=== PATIENT | female | born 1965 | race Caucasian/White ===

== ENCOUNTER → 2016-08-22 | Outpatient (CLI) | payer OTHER ==
[~2016-08-22] MED LIST: ALBUAER2 INH; ALPH150C PO; AMLO-110 PO; ASPEC81 PO; ASPI1TAB2 PO; CALC1TAB9 PO; CLOP1TAB15 PO; CONJ.6255 PO; CPR500 PO; DILT120C68 PO; ERGO1TAB10 PO; FLUC150T PO; FOLI1POW10; HYDC25 PO; LEVO75TA5 PO; LOSA1TAB38 PO; METR500T PO; MULT-663 PO; MULTCAP94 PO; NUTR750C PO; PRT/20 PO; SNG10 PO; SYN75 PO; VNTHFA/IN INH; VTMD1000 PO; [UNRECOGNIZED DRUG - CODE] PO
--- NOTE | 2016-08-22 14:00 | DIAGNOSTIC IMAGING REPORT ---
NUCLEAR GASTRIC EMPTYING STUDY HISTORY: Nausea. COMPARISON: None. TECHNIQUE: Following the oral administration of 1 mCi of technetium 99m sulfur colloid in egg sandwich and 8 ounces of water, static abdominal images are obtained anteriorly and posteriorly at 0 minutes, 1 hour, 2 hour, and 4 hour time intervals. Gastric emptying was calculated utilizing the geometric mean method. FINDINGS: There is approximately 51% activity remaining at the 1 hour time interval (normal is less than 90%), 2% remaining at the 2 hour time interval (normal is less than 60%), and 0% activity remaining at the 4 hour time interval (normal is less than 10%). IMPRESSION: No evidence for delayed gastric emptying. Electronically signed by: Jan Pulido M.D. 08/22/2016 1:58 PM Dictated Date/Time: 08/22/2016 1:57 PM
== END | disposition home or self-care (01) ==
LOC: C.NUCL 09:03
PROVIDERS: ATTEND Internal Medicine
DX: R11.0 Nausea (principal)

== ENCOUNTER 2016-10-08 23:31 | Inpatient (IN) | payer OTHER ==
[~2016-10-08] VITALS: Ht 160 cm; Wt 45.2 kg
[~2016-10-08 23:31] MED LIST changes: -AMLO-110 PO; -ASPI1TAB2 PO; -CALC1TAB9 PO; -CPR500 PO; -FLUC150T PO; -LEVO75TA5 PO; -METR500T PO; -MULTCAP94 PO; -VNTHFA/IN INH; -VTMD1000 PO
[2016-10-08] MEDS ORDERED: MoRPHine SULFATE 4 MG/ML 1 ML CARP\\VIAL IV STA (23:47)
[2016-10-08] MEDS ORDERED: SODIUM CHLORIDE 0.9% 1000ML 1,000 ML IV STA (23:47)
[2016-10-08] MEDS ORDERED: ONDANSETRON INJ 2 MG/ML 2 ML VIAL IV STA (23:47)
[2016-10-08 23:59] LABS: BASO % 0.2 %; BASO ABS # 0.04 K/uL (0-0.2); COMPLETE YES; EOS % 0.6 %; HEMATOCRIT 44.6 % (37-47); IG% 0.3 %; LYMPH % 14.5 %; LYMPH ABS # 3.38 K/uL (1.2-3.4); MEAN CORPUSCULAR HEMOGLOBIN 30.7 pg (25-34); MEAN CORPUSCULAR HGB CONC 34.5 g/dl (32-36); MEAN PLATELET VOLUME 9.5 fL (7.4-10.4); MONO % 6.6 %; NEUT % 77.8 %; PLATELET COUNT 456 K/uL (130-400); RED BLOOD COUNT 5.01 M/uL (4.2-5.4); WHITE BLOOD COUNT 23.37 K/uL (4.8-10.8)
[2016-10-09] MEDS ORDERED: OPTIRAY 320 IV PRN
[2016-10-09 00:02] LABS: MANUAL MICROSCOPIC REQUIRED? NO; REVIEW REQ? NO; URINE APPEARANCE CLEAR (CLEAR); URINE BILIRUBIN NEG (NEG); URINE COLOR YELLOW; URINE EPITHELIAL CELL AUTO 20-30 /lpf (0-5); URINE NITRITE NEG (NEG); URINE PH 5.5 (4.5-7.5); URINE SPECIFIC GRAVITY 1.017 (1.000-1.030); UROBILINOGEN NEG (NEG)
[2016-10-09 00:22] LABS: ALKALINE PHOSPHATASE 97 U/L (45-117); ALT/SGPT 30 U/L (12-78); BLOOD UREA NITROGEN 20 mg/dl (7-18); BUN/CREATININE RATIO 20.7 (10-20); CALCIUM 10.7 mg/dl (8.5-10.1); CARBON DIOXIDE 24 mmol/L (21-32); CHLORIDE 100 mmol/L (98-107); CREATININE 0.97 mg/dl (0.60-1.20); GLUCOSE 74 mg/dl (70-99); SODIUM 140 mmol/L (136-145)
[2016-10-09 00:54] LABS: POTASSIUM 3.8 mmol/L (3.5-5.1)
[2016-10-09] MEDS ORDERED: ONDANSETRON INJ 2 MG/ML 2 ML VIAL IV STA (01:24)
[2016-10-09] MEDS ORDERED: LEVO75TA5 PO (01:50)
[2016-10-09] MEDS ORDERED: AMLO-110 PO (01:51)
[2016-10-09] MEDS ORDERED: CALC1TAB9 PO (01:53)
[2016-10-09] MEDS ORDERED: ASPI1TAB2 PO (01:53)
[2016-10-09] MEDS ORDERED: VNTHFA/IN INH (01:53)
[2016-10-09] MEDS ORDERED: MULTCAP94 PO (01:54)
[2016-10-09] MEDS ORDERED: CIPROFLOXACIN 400MG / 200ML D5W IV STA (02:10)
[2016-10-09] MEDS ORDERED: METRONIDAZOLE 500MG / 100ML NSS IV STA (02:10)
--- NOTE | 2016-10-09 02:27 | EMERGENCY ROOM VISIT NOTE ---
History Report prepared by Ioana: Elmira Fish Under the Supervision of: Dr. Matty Hernández M.D. First contact with patient: 23:41 Chief Complaint: ABDOMINAL PAIN Stated Complaint: SEVERE LOWER ABD PAIN History of Present Illness The patient is a 51 year old female who presents to the Emergency Room with complaints of persistent lower abdominal pain starting 1800 today. She describes the pain as a pressure which is present on across her lower abdomen. She has a history of kidney stones, but this pain is different. She reports nausea and dry heaving. She also had a small amount of diarrhea. She denies any bloody stools, urinary symptoms or fever. She has a history of hypertension. Source of History: patient Onset: 1800 Position: abdomen (lower) Quality: pressure Timing: other (persistent) Associated Symptoms: + nausea, + diarrhea, No fevers, No hematochezia, No urinary symptoms Note: Pt reports dry heaving. Review of Systems See HPI for pertinent positives & negatives. A total of 10 systems reviewed and were otherwise negative. Past Medical & Surgical Medical Problems: (1) Hypertension Family History No pertinent family history stated. Social History Smoking Status: Never Smoker Marital Status: Occupation Status: employed Current/Historical Medications Scheduled Amlodipine (Norvasc), 5 MG PO DAILY Aspirin (Selina Aspirin Ec Low Dose), 1 TAB PO DAILY Calcium Citrate-Vitamin D (Citracal + D3 Maximum), 1 TAB PO DAILY Levothyroxine Sodium (Levothyroxine Sodium), 1 TAB PO DAILY Losartan Potassium (Cozaar), 100 MG PO DAILY Multiple Vitamins W/ Minerals (Ocuvite Adult 50+), 1 CAP PO DAILY Pantoprazole (Protonix), 20 MG PO DAILY Scheduled PRN Albuterol Hfa (Ventolin Hfa), 2-4 PUFFS INH Q6H PRN for SOB/Wheezing Allergies Coded Allergies: Amoxicillin (Verified Allergy, Mild, GI SYMPTOMS, 10/09/16) Clavulanic Acid (Verified Allergy, Mild, GI SYMPTOMS, 10/09/16) Homatropine (Verified Allergy, Mild, GI SYMPTOMS, 10/09/16) Hydrocodone (Verified Allergy, Mild, GI SYMPTOMS, 10/09/16) Sulfa Drugs (Verified Allergy, Unknown, 10/09/16) Physical Exam Vital Signs Date Time Temp Pulse Resp B/P (MAP) Pulse Ox O2 Delivery O2 Flow Rate FiO2 10/09/16 02:17 72 18 119/63 98 Room Air 10/09/16 00:38 74 18 109/75 98 Room Air 10/08/16 23:34 36.8 71 18 155/79 95 Room Air Physical Exam Constitutional: Vital signs reviewed. Eyes: Pupils are equal round reactive to light. Conjunctiva are noninjected. ENT: Pharynx is clear without erythema or exudate. Mucous membranes are moist. Neck supple without meningeal signs. Respiratory: Clear to auscultation bilaterally. Breath sounds are equal bilaterally. Cardiovascular: Regular rate and rhythm. No rubs or gallops. GI: Soft, nondistended with suprapubic tenderness to palpation. No guarding. Bowel sounds are present. Musculoskeletal: No peripheral edema. No lower extremity tenderness. Integumentary: No cyanosis. Neurological: The patient is awake and alert. No focal deficits. Psychiatric: Normal affect. Medical Decision & Procedures ER Provider Diagnostic Interpretation: Radiology results as stated below per my review and the [facility] radiologist's interpretation: CT abdomen and pelvis: Diverticulosis with mild thickening and adjacent stranding involving the sigmoid colon, suggestive of mild diverticulitis. Small 10 mm low-density focus in the lateral left pelvis, differential considerations include focal free fluid , early abscess, or ovarian cyst. No evidence of free air. Ectopically located and rotated right kidney in the right lateral abdomen. Right renal pelviectasis without evidence of hydroureter or obvious obstructing ureteral stone. Small renal hypodensities, possible cysts. Prominent intrahepatic ducts. Mild basilar atelectatic changes. Laboratory Results 10/08/16 23:45 Red Blood Count 5.01, Mean Corpuscular Volume 89.0, Mean Corpuscular Hemoglobin 30.7, Mean Corpuscular Hemoglobin Concent 34.5, Mean Platelet Volume 9.5, Neutrophils (%) (Auto) 77.8, Lymphocytes (%) (Auto) 14.5, Monocytes (%) (Auto) 6.6, Eosinophils (%) (Auto) 0.6, Basophils (%) (Auto) 0.2, Neutrophils # (Auto) 18.19, Lymphocytes # (Auto) 3.38, Monocytes # (Auto) 1.55, Eosinophils # (Auto) 0.13, Basophils # (Auto) 0.04 10/08/16 23:45 10/09/16 00:26 Test 6/5/17 23:39 10/08/16 23:45 10/09/16 00:26 Urine Color YELLOW Urine Appearance CLEAR (CLEAR) Urine pH 5.5 (4.5-7.5) Urine Specific [place] 1.017 (1.000-1.030) Urine Protein NEG (NEG) Urine Glucose (UA) NEG (NEG) Urine Ketones TRACE (NEG) Urine Occult Blood NEG (NEG) Urine Nitrite NEG (NEG) Urine Bilirubin NEG (NEG) Urine Urobilinogen NEG (NEG) Urine Leukocyte Esterase TRACE (NEG) Urine WBC (Auto) 1-5 /hpf (0-5) Urine RBC (Auto) 0-4 /hpf (0-4) Urine Hyaline Casts (Auto) 1-5 /lpf (0-5) Urine Epithelial Cells (Auto) 20-30 /lpf (0-5) Urine Bacteria (Auto) NEG (NEG) White Blood Count 23.37 K/uL (4.8-10.8) Red Blood Count 5.01 M/uL (4.2-5.4) Hemoglobin 15.4 g/dL (12.0-16.0) Hematocrit 44.6 % (37-47) Mean Corpuscular Volume 89.0 fL (80-100) Mean Corpuscular Hemoglobin 30.7 pg (25-34) Mean Corpuscular Hemoglobin Concent 34.5 g/dl (32-36) Platelet Count 456 K/uL (130-400) Mean Platelet Volume 9.5 fL (7.4-10.4) Neutrophils (%) (Auto) 77.8 % Lymphocytes (%) (Auto) 14.5 % Monocytes (%) (Auto) 6.6 % Eosinophils (%) (Auto) 0.6 % Basophils (%) (Auto) 0.2 % Neutrophils # (Auto) 18.19 K/uL (1.4-6.5) Lymphocytes # (Auto) 3.38 K/uL (1.2-3.4) Monocytes # (Auto) 1.55 K/uL (0.11-0.59) Eosinophils # (Auto) 0.13 K/uL (0-0.5) Basophils # (Auto) 0.04 K/uL (0-0.2) RDW Standard Deviation 40.5 fL (36.4-46.3) RDW Coefficient of Variation 12.5 % (11.5-14.5) Immature Granulocyte % (Auto) 0.3 % Immature Granulocyte # (Auto) 0.08 K/uL (0.00-0.02) Anion Gap 16.0 mmol/L (3-11) Est Creatinine Clear Calc Drug Dose 47.9 ml/min Estimated GFR () 77.3 Estimated GFR (Non- 66.7 BUN/Creatinine Ratio 20.7 (10-20) Calcium Level 10.7 mg/dl (8.5-10.1) Total Bilirubin 0.6 mg/dl (0.2-1) Alanine Aminotransferase (ALT/SGPT) 30 U/L (12-78) Alkaline Phosphatase 97 U/L (45-117) Total Protein 9.3 gm/dl (6.4-8.2) Albumin 4.8 gm/dl (3.4-5.0) Lipase 157 U/L (73-393) Direct Bilirubin 0.1 mg/dl (0-0.2) Aspartate Amino Transf (AST/SGOT) 45 U/L (15-37) Laboratory results as reviewed by me. Medications Administered Medications (Trade) Dose Ordered Sig/Mary Route Start Time Stop Time Status Last Admin Dose Admin Morphine Sulfate (MoRPHine SULFATE INJ) 4 mg ONE STAT IV 10/08/16 23:47 10/08/16 23:48 DC 10/08/16 23:55 4 MG Ondansetron HCl (Zofran Inj) 4 mg NOW STAT IV 10/08/16 23:47 10/08/16 23:48 DC 10/08/16 23:55 4 MG Sodium Chloride 1,000 ml @ 999 mls/hr Q1H1M STAT IV 10/08/16 23:47 10/09/16 00:47 DC 10/08/16 23:54 999 MLS/HR Ondansetron HCl (Zofran Inj) 4 mg NOW STAT IV 10/09/16 01:24 10/09/16 01:25 DC 10/09/16 01:27 4 MG ED Course 2344: The patient was evaluated in room A9. A complete history and physical exam was performed. 2347: NSS 1000 ml @ 999 mls/hr IV, Zofran Inj 4 mg IV, Morphine Sulfate 4 mg IV. 0123: The patient requests more nausea medications. 0124: Zofran Inj 4 mg IV. 0206: I reevaluated the patient. I discussed the results and treatment plan with her. She verbalized understanding and agreement. The patient will be evaluated for further management. 0210: Metronidazole 500 mg IV, Ciprofloxacin/Dextrose 400 mg IV. 0220: I discussed the patient's case with Dr. Ashraf, [facility] [place]. The patient will be evaluated for further management. Medical Decision This is a 51-year-old female who presents with lower abdominal pain. Differential diagnosis includes diverticulitis, perforation, abscess, UTI, mass , kidney stone. I did perform a limited focused review of portions of the patient's old chart on the electronic medical record. The patient had a gastric emptying study on August 22 which showed no evidence of delayed gastric emptying. She had a colonoscopy in 2011 which showed diverticulosis and polyps. Medication Reconciliation: I attest that I have personally reviewed the patient' s current medication list. Blood Pressure Screening: Patient was found to have an elevated blood pressure and was referred to their primary doctor for recheck and further treatment. I did evaluate the patient as noted above. The patient is presenting with lower abdominal pain. She has had some vomiting and diarrhea as well. Prior colonoscopy demonstrated diverticulosis. IV access was established. I did treat the patient with IV morphine and Zofran. She was given normal saline IV. I did order and personally review the patient's urinalysis as described above. I did order and review the patient's blood work as noted in the electronic medical record. Her white blood cell count is significantly elevated. I did order a CT of the abdomen and pelvis. I did review the images myself as well as the radiology report as described above. She does appear to have diverticulitis of the sigmoid colon. There was a 10 mm focus on the left side in the pelvis which could represent a developing abscess which would be consistent with her history of pain and diarrhea. She is monogamous and and is not concerned about STI. Pelvic exam was deferred after discussion with the patient and her . I did treat her with IV Cipro and Flagyl. I did discuss the case with the hospitalist and manager case. Consults Time Called: [phone] Consulting Physician: Dr. Ashraf, [facility] [place] Returned Call: [phone] I discussed the patient's case with him. The patient will be evaluated for further management. Impression Primary Impression: Sigmoid diverticulitis Additional Impression: Intra-abdominal abscess Scribe Attestation The scribe's documentation has been prepared under my direct and personally reviewed by me in its entirety. I confirm that the note above accurately reflects all work, treatment, procedures, and medical decision making performed by me. Departure Information Dispostion Being Evaluated By Hospitalist Referrals Chalino Engle M.D. (PCP) Patient Instructions [facility] Health Problem Qualifiers
[2016-10-09] MEDS ORDERED: ALBUTEROL HFA 8 GM INHALER INH PRN (03:30)
[2016-10-09 04:00] VITALS: BP 132/86; PULSE 102; TEMP 37.2; O2SAT 93
[2016-10-09 04:10] VITALS: Ht 160 cm; Wt 45.2 kg
--- NOTE | 2016-10-09 04:23 | History and Physical ---
History & Physical Date & Time of Service: Oct 09, 2016 at 04:04 Chief Complaint: Diverticulitis Primary Care Physician: Chalino Engle M.D. History of Present Illness Source: patient 51 y/o F Hx HTN, TIA, Mitochondrial myopathy with chronic lactic acidosis. Pt developed LLQ abdominal pain which became progressively severe. She has not had diarrhea or fevers. She did describe nausea. A CT was obtained in the ER revealing sigmoid diverticulitis with possible small abscess formation. Past Medical/Surgical History 1) Lactic acid mitochondrial myopathy (MELAS) 2) TIA 3) Hypertension 4) Hyperlipidemia 5) Graves' disease 1993 with hypothyroidism 6) Asthma 7) Osteoporosis Past Surgical History: Appendectomy, Colposcopy with loop electrode conization, Sinus surgery, Dental surgery, Tonsillectomy with adenoidectomy Family History Mother had a CVA Social History Smoking Status: Never Smoker Marital Status: Housing status: lives with family Occupational Status: employed Immunizations History of Influenza Vaccine: No History of Tetanus Vaccine?: Yes History of Pneumococcal: No History of Hepatitis B Vaccine: No Multi-Drug Resistant Organisms History of MDRO: No Allergies Coded Allergies: Amoxicillin (Verified Allergy, Mild, GI SYMPTOMS, 10/09/16) Clavulanic Acid (Verified Allergy, Mild, GI SYMPTOMS, 10/09/16) Homatropine (Verified Allergy, Mild, GI SYMPTOMS, 10/09/16) Hydrocodone (Verified Allergy, Mild, GI SYMPTOMS, 10/09/16) Sulfa Drugs (Verified Allergy, Unknown, 10/09/16) Home Medications Scheduled Amlodipine (Norvasc), 5 MG PO DAILY Aspirin (Selina Aspirin Ec Low Dose), 1 TAB PO DAILY Calcium Citrate-Vitamin D (Citracal + D3 Maximum), 1 TAB PO DAILY Levothyroxine Sodium (Levothyroxine Sodium), 1 TAB PO DAILY Losartan Potassium (Cozaar), 100 MG PO DAILY Multiple Vitamins W/ Minerals (Ocuvite Adult 50+), 1 CAP PO DAILY Pantoprazole (Protonix), 20 MG PO DAILY Scheduled PRN Albuterol Hfa (Ventolin Hfa), 2-4 PUFFS INH Q6H PRN for SOB/Wheezing Review of Systems Constitutional: + weakness (chronic), No fever, No chills, No sweats Eyes: No worsening of vision, No eye pain ENT: No hearing loss, No unusual epistaxis, No nasal symptoms Respiratory: No cough, No sputum, No wheezing Cardiovascular: No chest pain, No orthopnea, No PND Abdomen: + pain, + nausea, No vomiting, No diarrhea Musculoskeletal: + muscle pain (chronic), No joint pain Genitourinary - Female: No dysuria, No urinary frequency, No urinary urgency, No urinary incontinence, No urinary retention, No hematuria Neurologic: No memory loss, No paralysis, No weakness Psychiatric: No depression symptoms Endocrine: + fatigue Hematologic / Lymphatic: No abnormal bleeding/bruising Integumentary: No rash Allergic / Immunologic: No environmental allergies Physical Exam Vital Signs Date Time Temp Pulse Resp B/P (MAP) Pulse Ox O2 Delivery O2 Flow Rate FiO2 10/09/16 03:44 36.8 66 18 96/56 96 10/09/16 03:39 66 18 96/56 96 Room Air 10/09/16 02:17 72 18 119/63 98 Room Air 10/09/16 00:38 74 18 109/75 98 Room Air 10/08/16 23:34 36.8 71 18 155/79 95 Room Air General Appearance: WD/WN, no apparent distress Head: normocephalic, atraumatic Eyes: normal inspection, PERRL, EOMI ENT: normal ENT inspection, pharynx normal Neck: supple, no JVD Respiratory/Chest: chest non-tender, lungs clear, normal breath sounds, no respiratory distress, no accessory muscle use Cardiovascular: regular rate, rhythm, no edema, no gallop Abdomen/GI: normal bowel sounds, soft, + tenderness (Lower quadrants without guarding) Back: normal inspection, no CVA tenderness Extremities/Musculoskelatal: normal inspection, no calf tenderness, normal capillary refill, no pedal edema, normal range of motion 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, no motor/sensory deficits, alert, normal mood/affect, normal reflexes, oriented x 3 Skin: normal color, warm/dry, no rash Diagnostics Laboratory Results Results Past 24 Hours Test 10/08/16 23:39 10/08/16 23:45 10/09/16 00:26 Range/Units Urine Color YELLOW Urine Appearance CLEAR CLEAR Urine pH 5.5 4.5-7.5 Urine Specific [place] 1.017 1.000-1.030 Urine Protein NEG NEG Urine Glucose (UA) NEG NEG Urine Ketones TRACE NEG Urine Occult Blood NEG NEG Urine Nitrite NEG NEG Urine Bilirubin NEG NEG Urine Urobilinogen NEG NEG Urine Leukocyte Esterase TRACE NEG Urine WBC (Auto) 1-5 0-5 /hpf Urine RBC (Auto) 0-4 0-4 /hpf Urine Hyaline Casts (Auto) 1-5 0-5 /lpf Urine Epithelial Cells (Auto) 20-30 0-5 /lpf Urine Bacteria (Auto) NEG NEG White Blood Count 23.37 4.8-10.8 K/uL Red Blood Count 5.01 4.2-5.4 M/uL Hemoglobin 15.4 12.0-16.0 g/dL Hematocrit 44.6 37-47 % Mean Corpuscular Volume 89.0 80-100 fL Mean Corpuscular Hemoglobin 30.7 25-34 pg Mean Corpuscular Hemoglobin Concent 34.5 32-36 g/dl Platelet Count 456 130-400 K/uL Mean Platelet Volume 9.5 7.4-10.4 fL Neutrophils (%) (Auto) 77.8 % Lymphocytes (%) (Auto) 14.5 % Monocytes (%) (Auto) 6.6 % Eosinophils (%) (Auto) 0.6 % Basophils (%) (Auto) 0.2 % Neutrophils # (Auto) 18.19 1.4-6.5 K/uL Lymphocytes # (Auto) 3.38 1.2-3.4 K/uL Monocytes # (Auto) 1.55 0.11-0.59 K/uL Eosinophils # (Auto) 0.13 0-0.5 K/uL Basophils # (Auto) 0.04 0-0.2 K/uL RDW Standard Deviation 40.5 36.4-46.3 fL RDW Coefficient of Variation 12.5 11.5-14.5 % Immature Granulocyte % (Auto) 0.3 % Immature Granulocyte # (Auto) 0.08 0.00-0.02 K/uL Sodium Level 140 136-145 mmol/L Potassium Level 3.8 3.5-5.1 mmol/L Chloride Level 100 98-107 mmol/L Carbon Dioxide Level 24 21-32 mmol/L Anion Gap 16.0 3-11 mmol/L Blood Urea Nitrogen 20 7-18 mg/dl Creatinine 0.97 0.60-1.20 mg/dl Est Creatinine Clear Calc Drug Dose 47.9 ml/min Estimated GFR () 77.3 Estimated GFR (Non- 66.7 BUN/Creatinine Ratio 20.7 10-20 Random Glucose 74 70-99 mg/dl Calcium Level 10.7 8.5-10.1 mg/dl Total Bilirubin 0.6 0.2-1 mg/dl Direct Bilirubin 0.1 0-0.2 mg/dl Aspartate Amino Transf (AST/SGOT) 45 15-37 U/L Alanine Aminotransferase (ALT/SGPT) 30 12-78 U/L Alkaline Phosphatase 97 45-117 U/L Total Protein 9.3 6.4-8.2 gm/dl Albumin 4.8 3.4-5.0 gm/dl Lipase 157 73-393 U/L Diagnostic Radiology CT abdomen: Sigmoid diverticulitis - possible formation of small abscess Impression Assessment and Plan 51 y/o F Hx HTN, TIA, Mitochondrial myopathy with chronic lactic acidosis. Pt developed LLQ abdominal pain which became progressively severe. She has not had diarrhea or fevers. She did describe nausea. A CT was obtained in the ER revealing sigmoid diverticulitis with possible small abscess formation. 1) Diverticulitis - pt placed on Cipro/Flagyl. Surgery consulted. Pt will be kept NPO and provided with IVF and adequate analgesia. The pt states that her body temp is normally low as a result of her mitochondrial disease. This combined with a chronically elevated lactic acid may make it difficult to gauge the severity of an infection in this pt. 2) HTN - Cont Norvasc, Losartan 3) Hx TIA - ASA held pending surgery evaluation - should be continued if it is deemed that no intervention will be necessary. 4) Mitochondrial myopathy - no treatment is currently available. 5) Hypothyroidism - cont Synthroid Full code - Heparin prophylaxis Total time for this admit including review of labs, meds, EKG, records - discussion with pt and ER attending - 36 min Level of Care Med/Surg Resuscitation Status FULL RESUSCITATION VTE Prophylaxis VTE Risk Assessment Done? Y/N: Yes Risk Level: Low Given or contraindicated: Unfractionated heparin SQ
[2016-10-09] MEDS ORDERED: PROMETHAZINE HCL INJ 12.5 MG in SODIUM CHLORIDE 0.9% 50ML 50 ML IV ONE ×2 (04:30→16:30)
[2016-10-09] MEDS ORDERED: NURSING VERBAL MED ORDER ONE ×2 (04:30→17:00)
[2016-10-09] MEDS: D5NSS + 20MEQ KCL 1,000 ML IV SCH ×3 (04:52→20:02)
[2016-10-09 05:02] LABS: PROTHROMBIN TIME (PATIENT) 10.5 SECONDS (9.0-12.0)
[2016-10-09] MEDS: LEVOTHYROXINE 75 MCG TAB PO SCH ×2 (06:00→16:56)
[2016-10-09] MEDS: HEPARIN SOD 5000 UNIT/0.5 ML CARP SQ SCH ×3 (06:05→21:49)
--- NOTE | 2016-10-09 06:56 | DIAGNOSTIC IMAGING REPORT ---
CT OF THE ABDOMEN AND PELVIS WITH CONTRAST CLINICAL HISTORY: Suprapubic pain. Evaluate for acute diverticulitis. COMPARISON STUDY: CT of the abdomen and pelvis September 04, 2005 and right upper quadrant ultrasound January 26, 2013. TECHNIQUE: Following IV administration of 92 mL of [id number]-320, axial images of the abdomen and pelvis were obtained from the lung bases to the proximal femurs. Images were reviewed in the axial, sagittal, and coronal planes. IV contrast was administered without complication. CT DOSE: 253.68 mGy.cm FINDINGS: There is a 6 lm right hepatic dome cyst. The spleen, adrenal glands and pancreas are unremarkable. There is mild right pelvicaliectasis without hydronephrosis. There are numerous water attenuation renal lesions which are consistent with cysts. Note is made of a 1.5 cm hyperdense lesion arising from the lower pole of the left kidney. This is indeterminate. There is no evidence for a bowel obstruction. There is sigmoid diverticulosis with mild wall thickening of the sigmoid colon and mild adjacent infiltration and fluid. There is no free air or abscess. Skeletal structures are unremarkable. There is no lymphadenopathy. IMPRESSION: 1. Acute sigmoid diverticulitis. No free air or abscess. 2. Indeterminate 1.5 cm lesion arising from the lower pole of the left kidney which may reflect a hyperdense cyst or solid renal lesion. A follow-up renal protocol CT is recommended. Electronically signed by: Mahesh Bonilla M.D. 10/09/2016 6:55 AM Dictated Date/Time: 10/09/2016 6:46 AM
[2016-10-09 07:42] VITALS: BP 100/62; PULSE 60; TEMP 37.1; O2SAT 94
[2016-10-09] MEDS: LOSARTAN POTASSIUM 50 MG TAB PO SCH (08:13)
[2016-10-09] MEDS: PANTOprazole SOD 40 MG TAB PO SCH ×2 (08:14→16:56)
[2016-10-09 08:33] VITALS: O2SAT 94
[2016-10-09] MEDS ORDERED: AMLODIPINE BESYLATE 5 MG TAB PO SCH (09:00)
[2016-10-09] MEDS: METRONIDAZOLE / NSS 500 MG in PREMIXED NSS 100 ML IV SCH ×2 (09:36→18:09)
[2016-10-09] MEDS: CIPROFLOXACIN / D5W 400 MG in PREMIXED IN D5W 200 ML IV SCH (12:32)
--- NOTE | 2016-10-09 13:42 | Surgery Consultation ---
Consultation Date of Consultation: Oct 09, 2016. Attending Physician: Delia Winkler MD Reason for Consultation: Acute diverticulitis of sigmoid colon History of Present Illness Pauly is a pleasant 51 year-old female who presented to emergency department last evening with complaint of left lower quadrant abdominal pain that began suddenly around 6 pm last evening. Pauly states she was not feeling well the past few days and was not eating much. Tried to eat dinner last night and suddenly developed pain. Had associated fever (low grade) and nausea. No vomiting. Denies of any similar episodes of pain. Has had a colonoscopy in the past and new she had diverticulosis. No previous episodes of diverticulitis. A Ct scan of the abdomen and pelvis showed sigmoid diverticulosis with sigmoid wall thickening and adjacent fluid. No free air or abscess appreciated on imaging. Since admission, Pauly states her pain is much improved and now is just a soreness in the left lower abdomen. Denies of any further chills, fever, nausea , or vomiting. She did have a leukocytosis of 23.37 on admission. Past Medical/Surgical History Medical Problems: (1) Intra-abdominal abscess Status: Acute (2) Sigmoid diverticulitis Status: Acute Social History Smoking Status: Never Smoker Marital Status: Occupation Status: employed Allergies Coded Allergies: Amoxicillin (Verified Allergy, Mild, GI SYMPTOMS, 10/09/16) Clavulanic Acid (Verified Allergy, Mild, GI SYMPTOMS, 10/09/16) Homatropine (Verified Allergy, Mild, GI SYMPTOMS, 10/09/16) Hydrocodone (Verified Allergy, Mild, GI SYMPTOMS, 10/09/16) Sulfa Drugs (Verified Allergy, Unknown, 10/09/16) Home Medications Scheduled Amlodipine (Norvasc), 5 MG PO DAILY Aspirin (Selina Aspirin Ec Low Dose), 1 TAB PO DAILY Calcium Citrate-Vitamin D (Citracal + D3 Maximum), 1 TAB PO DAILY Levothyroxine Sodium (Levothyroxine Sodium), 1 TAB PO DAILY Losartan Potassium (Cozaar), 100 MG PO DAILY Multiple Vitamins W/ Minerals (Ocuvite Adult 50+), 1 CAP PO DAILY Pantoprazole (Protonix), 20 MG PO DAILY Scheduled PRN Albuterol Hfa (Ventolin Hfa), 2-4 PUFFS INH Q6H PRN for SOB/Wheezing Current Inpatient Medications Current Inpatient Medications Medications (Trade) Dose Ordered Sig/Mary Route Start Time Stop Time Status Last Admin Dose Admin Ioversol (Optiray 320) 100 ml UD PRN IV 10/09/16 00:00 10/13/16 00:00 Albuterol (Ventolin Hfa Inhaler) 2 puffs Q6H PRN INH 10/09/16 03:30 11/08/16 03:29 Amlodipine Besylate (Norvasc Tab) 5 mg DAILY PO 10/09/16 09:00 11/08/16 08:59 Levothyroxine Sodium (Synthroid Tab) 75 mcg DAILYBB PO 10/09/16 06:00 11/08/16 06:59 Losartan Potassium (coZAAR TAB) 100 mg DAILY PO 10/09/16 09:00 11/08/16 08:59 Pantoprazole Sodium (Protonix Tab) 40 mg QAM PO 10/09/16 09:00 11/08/16 08:59 Morphine Sulfate (MoRPHine SULFATE INJ) 4 mg Q3H PRN IV 10/09/16 03:30 10/23/16 03:29 Heparin Sodium (Porcine) (Heparin Sq 5000 Unit/0.5ml) 5,000 unit Q8H SQ 10/09/16 06:00 11/08/16 05:59 10/09/16 06:05 5,000 UNIT Acetaminophen (Tylenol Tab) 650 mg Q4H PRN PO 10/09/16 03:30 11/08/16 03:29 Ondansetron HCl (Zofran Inj) 4 mg Q6H PRN IV 10/09/16 03:30 11/08/16 03:29 Ciprofloxacin/ Dextrose 400 mg/ Prmx 200 ml @ 100 mls/hr Q12H IV 10/09/16 14:00 10/19/16 13:59 10/09/16 12:32 100 MLS/HR Metronidazole 500 mg/Prmx 100 ml @ 100 mls/hr Q8H IV 10/09/16 10:00 10/19/16 09:59 10/09/16 09:36 100 MLS/HR Potassium Chloride/Dextrose/ Sod Cl 1,000 ml @ 125 mls/hr Q8H IV 10/09/16 04:30 10/10/16 04:29 10/09/16 12:33 125 MLS/HR Review of Systems Constitutional: + fever, + problem reported (low appetite) Abdomen: + pain (LLQ), + nausea, No vomiting, No diarrhea, No constipation, No GI bleeding Genitourinary - Female: No dysuria Physical Exam Date Time Temp Pulse Resp B/P (MAP) Pulse Ox O2 Delivery O2 Flow Rate FiO2 10/09/16 08:33 94 Room Air 10/09/16 07:46 Room Air 10/09/16 07:42 37.1 60 18 100/62 (75) 94 Room Air 10/09/16 04:10 Room Air 10/09/16 04:10 Room Air 10/09/16 04:00 37.2 102 18 132/86 (101) 93 Room Air 10/09/16 03:44 36.8 66 18 96/56 96 10/09/16 03:39 66 18 96/56 96 Room Air 10/09/16 02:17 72 18 119/63 98 Room Air 10/09/16 00:38 74 18 109/75 98 Room Air 10/08/16 23:34 36.8 71 18 155/79 95 Room Air General Appearance: WD/WN, no apparent distress Head: normocephalic, atraumatic Eyes: sclerae normal Neck: trachea midline Respiratory/Chest: no respiratory distress, no accessory muscle use Abdomen/GI: soft, no organomegaly, no pulsatile mass, + tenderness (LLQ, no distention, guarding, rebound, or peritonitis) Extremities/Musculoskelatal: no pedal edema Neurologic/Psych: alert, oriented x 3 Skin: normal color, warm/dry, no rash Laboratory Results Last 24 Hours Test 10/08/16 23:39 10/08/16 23:45 10/09/16 00:26 10/09/16 04:42 Urine Color YELLOW Urine Appearance CLEAR Urine pH 5.5 Urine Specific [place] 1.017 Urine Protein NEG Urine Glucose (UA) NEG Urine Ketones TRACE Urine Occult Blood NEG Urine Nitrite NEG Urine Bilirubin NEG Urine Urobilinogen NEG Urine Leukocyte Esterase TRACE Urine WBC (Auto) 1-5 /hpf Urine RBC (Auto) 0-4 /hpf Urine Hyaline Casts (Auto) 1-5 /lpf Urine Epithelial Cells (Auto) 20-30 /lpf Urine Bacteria (Auto) NEG White Blood Count 23.37 K/uL Red Blood Count 5.01 M/uL Hemoglobin 15.4 g/dL Hematocrit 44.6 % Mean Corpuscular Volume 89.0 fL Mean Corpuscular Hemoglobin 30.7 pg Mean Corpuscular Hemoglobin Concent 34.5 g/dl Platelet Count 456 K/uL Mean Platelet Volume 9.5 fL Neutrophils (%) (Auto) 77.8 % Lymphocytes (%) (Auto) 14.5 % Monocytes (%) (Auto) 6.6 % Eosinophils (%) (Auto) 0.6 % Basophils (%) (Auto) 0.2 % Neutrophils # (Auto) 18.19 K/uL Lymphocytes # (Auto) 3.38 K/uL Monocytes # (Auto) 1.55 K/uL Eosinophils # (Auto) 0.13 K/uL Basophils # (Auto) 0.04 K/uL RDW Standard Deviation 40.5 fL RDW Coefficient of Variation 12.5 % Immature Granulocyte % (Auto) 0.3 % Immature Granulocyte # (Auto) 0.08 K/uL Sodium Level 140 mmol/L Potassium Level mmol/L 3.8 mmol/L Chloride Level 100 mmol/L Carbon Dioxide Level 24 mmol/L Anion Gap 16.0 mmol/L Blood Urea Nitrogen 20 mg/dl Creatinine 0.97 mg/dl Est Creatinine Clear Calc Drug Dose 47.9 ml/min Estimated GFR () 77.3 Estimated GFR (Non- 66.7 BUN/Creatinine Ratio 20.7 Random Glucose 74 mg/dl Calcium Level 10.7 mg/dl Total Bilirubin 0.6 mg/dl Direct Bilirubin mg/dl 0.1 mg/dl Aspartate Amino Transf (AST/SGOT) U/L 45 U/L Alanine Aminotransferase (ALT/SGPT) 30 U/L Alkaline Phosphatase 97 U/L Total Protein 9.3 gm/dl Albumin 4.8 gm/dl Lipase 157 U/L Prothrombin Time 10.5 SECONDS Prothromb Time International Ratio 1.0 Hepatitis C Antibody Screen NEG CT OF THE ABDOMEN AND PELVIS WITH CONTRAST CLINICAL HISTORY: Suprapubic pain. Evaluate for acute diverticulitis. COMPARISON STUDY: CT of the abdomen and pelvis September 04, 2005 and right upper quadrant ultrasound January 26, 2013. TECHNIQUE: Following IV administration of 92 mL of Optiray-320, axial images of the abdomen and pelvis were obtained from the lung bases to the proximal femurs. Images were reviewed in the axial, sagittal, and coronal planes. IV contrast was administered without complication. CT DOSE: 253.68 mGy.cm FINDINGS: There is a 6 lm right hepatic dome cyst. The spleen, adrenal glands and pancreas are unremarkable. There is mild right pelvicaliectasis without hydronephrosis. There are numerous water attenuation renal lesions which are consistent with cysts. Note is made of a 1.5 cm hyperdense lesion arising from the lower pole of the left kidney. This is indeterminate. There is no evidence for a bowel obstruction. There is sigmoid diverticulosis with mild wall thickening of the sigmoid colon and mild adjacent infiltration and fluid. There is no free air or abscess. Skeletal structures are unremarkable. There is no lymphadenopathy. IMPRESSION: 1. Acute sigmoid diverticulitis. No free air or abscess. 2. Indeterminate 1.5 cm lesion arising from the lower pole of the left kidney which may reflect a hyperdense cyst or solid renal lesion. A follow-up renal protocol CT is recommended. Assessment & Plan Acute Sigmoid Diverticulitis- uncomplicated - leukocytosis of 23.37 - LLQ tenderness on examination, no peritonitis or rigidity - CT scan showing no evidence of free air or abscess Plan: Continue conservative treatment at this time: IV fluids, IV antibiotics, Continue NPO, IV pain management as needed Possible sips of clears tomorrow repeat am labs, trend white count will continue to follow Dr. Stanley has seen and examined patient, agrees with above.
[2016-10-09 15:20] VITALS: BP 103/70; PULSE 60; TEMP 37; O2SAT 97
--- NOTE | 2016-10-09 17:04 | Progress Note ---
Progress Note Date of Service Oct 09, 2016. Progress Note Pt admitted after midnight. Seen and examined, chart reviewed Pt feeling much better, afebrile, pain less. SHe reports she recently had her meds changed around by a Mitochondrial Dz expert in [place] 2 weeks ago--> she reported he stopped her amlodipine as it may have been causing "surges of adrenaline" in her head and started her on Coreg. This she took for 4 days and had significant increase in nausea and some vomiting. She reports almost daily nausea with some vomiting for 6 months now. Last EGD 3 yrs ago, last colonoscopy about 5 yrs ago. No GI bleeding Since then, she stopped the Coreg and increased her losartan on her own to 100mg bid for the last week or son. 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 Improving -continue Cipro/Flagyl -appreciate Surgical consult-no surgery indicated at this time -check Vit D level as can be related to recurrent diverticulitis -adv diet as maryuri but bowel rest for now -continue IVFs -repeat CBC in AM as WBC 23k -follow PRP -BPs low likely from losartan overdose--> advised only losartan max of 100mg daily and hold BP meds for now -continue levothyroxine, PPI -heparin SQ, SCDs for Proph Also with incidental finding of left renal mass 1.5cm--> needs dedicated Renal CT either here or as outpatient
[2016-10-09] MEDS: ONDANSETRON INJ 2 MG/ML 2 ML VIAL IV PRN (18:03)
[2016-10-09 19:50] VITALS: BP 125/71; PULSE 60; TEMP 36.8; O2SAT 98
[2016-10-09] MEDS: MoRPHine SULFATE 4 MG/ML 1 ML CARP\\VIAL IV PRN (19:52)
[2016-10-09 22:44] VITALS: BP 102/65; PULSE 56; TEMP 37; O2SAT 98
[2016-10-10] MEDS: CIPROFLOXACIN / D5W 400 MG in PREMIXED IN D5W 200 ML IV SCH ×2 (02:13→14:02)
[2016-10-10] MEDS: METRONIDAZOLE / NSS 500 MG in PREMIXED NSS 100 ML IV SCH ×3 (02:13→17:43)
[2016-10-10 05:00] VITALS: PULSE 62
[2016-10-10] MEDS: HEPARIN SOD 5000 UNIT/0.5 ML CARP SQ SCH ×3 (06:00→21:41)
[2016-10-10] MEDS: LEVOTHYROXINE 75 MCG TAB PO SCH (06:09)
[2016-10-10 07:30] VITALS: BP 116/78; PULSE 60; TEMP 36.7; O2SAT 96
--- NOTE | 2016-10-10 07:33 | Surgery Progress Note ---
Surgery Progress Note Date of Service Oct 10, 2016. Subjective Post OP Day: HD 2 + feeling well, + flatus, + diet (sips), No complaints, No bowel movement, No nausea, No vomiting Objective Vital Signs: Date Time Temp Pulse Resp B/P (MAP) Pulse Ox O2 Delivery O2 Flow Rate FiO2 10/10/16 07:30 36.7 60 20 116/78 (91) 96 Room Air 10/10/16 05:00 62 10/09/16 23:30 Room Air 10/09/16 22:44 37.0 56 18 102/65 (77) 98 Room Air 10/09/16 19:50 36.8 60 18 125/71 (89) 98 Room Air 10/09/16 15:30 Room Air 10/09/16 15:20 37.0 60 18 103/70 (81) 97 Room Air 10/09/16 08:33 94 Room Air 10/09/16 07:46 Room Air 10/09/16 07:42 37.1 60 18 100/62 (75) 94 Room Air General Appearance: WD/WN, no apparent distress Head: normocephalic, atraumatic Neck: supple, trachea midline Respiratory/Chest: chest non-tender, lungs clear Cardiovascular: regular rate, rhythm, no gallop, no murmur Abdomen: normal bowel sounds, non distended, soft, + tenderness (mild LLQ) Extremities: non-tender, no pedal edema Laboratory Results: Results Past 24 Hours Test 10/10/16 06:44 Range/Units Assessment & Plan acute diverticulitis -IV abx -begin po -good progress
[2016-10-10 08:05] LABS: BASO % 0.1 %; BASO ABS # 0.01 K/uL (0-0.2); COMPLETE YES; EOS % 3.5 %; IG% 0.1 %; LYMPH % 15.1 %; LYMPH ABS # 1.23 K/uL (1.2-3.4); MEAN CORPUSCULAR HEMOGLOBIN 30.4 pg (25-34); MEAN CORPUSCULAR HGB CONC 34.1 g/dl (32-36); MEAN PLATELET VOLUME 9.3 fL (7.4-10.4); NEUT % 71.2 %; PLATELET COUNT 330 K/uL (130-400); RED BLOOD COUNT 3.82 M/uL (4.2-5.4); WHITE BLOOD COUNT 8.17 K/uL (4.8-10.8)
[2016-10-10 08:15] VITALS: O2SAT 96
[2016-10-10 08:16] LABS: BUN/CREATININE RATIO 12.6 (10-20); CREATININE 0.42 mg/dl (0.60-1.20); MAGNESIUM 1.6 mg/dl (1.8-2.4); POTASSIUM 3.9 mmol/L (3.5-5.1); THYROID STIMULATING HORMONE 0.182 uIu/ml (0.300-4.500)
[2016-10-10] MEDS: LOSARTAN POTASSIUM 50 MG TAB PO SCH (09:59)
[2016-10-10] MEDS: PANTOprazole SOD 40 MG TAB PO SCH (09:59)
[2016-10-10] MEDS ORDERED: MAGNESIUM SULFATE 1GM / D5W 1 GM in PREMIXED IN D5W 100 ML IV ONE (10:45)
[2016-10-10] MEDS ORDERED: NURSING VERBAL MED ORDER ONE (10:45)
[2016-10-10 11:14] LABS: CALCIUM 8.2 mg/dl (8.5-10.1)
[2016-10-10] MEDS: SODIUM CHLOR 0.45% + 20MEQ KCL 1,000 ML IV SCH ×2 (11:21→21:42)
[2016-10-10] MEDS: ONDANSETRON INJ 2 MG/ML 2 ML VIAL IV PRN ×2 (11:25→23:51)
[2016-10-10 14:54] VITALS: BP 124/80; PULSE 54; TEMP 37.1; O2SAT 97
--- NOTE | 2016-10-10 15:15 | Hospitalist Progress Note ---
Hospitalist Progress Note Date of Service Oct 10, 2016. Subjective Pt evaluation today including: conversation w/ patient Had mod amnt yellow vag discharge this AM, none since, no vag itching or burning. Abd pain less but still present, afebrile, WBC count trending downward. having diarrhea today with urgency, nonbloody. Having some nausea as well. Maryuri clears but low appetite Respiratory: No shortness of breath Cardiovascular: No chest pain All Other Systems: Reviewed and Negative Objective Vital Signs Date Time Temp Pulse Resp B/P (MAP) Pulse Ox O2 Delivery O2 Flow Rate FiO2 10/10/16 14:54 37.1 54 18 124/80 (95) 97 Room Air 10/10/16 08:15 96 Room Air 10/10/16 07:55 Room Air 10/10/16 07:30 36.7 60 20 116/78 (91) 96 Room Air 10/10/16 05:00 62 10/09/16 23:30 Room Air 10/09/16 22:44 37.0 56 18 102/65 (77) 98 Room Air 10/09/16 19:50 36.8 60 18 125/71 (89) 98 Room Air 10/09/16 15:30 Room Air 10/09/16 15:20 37.0 60 18 103/70 (81) 97 Room Air Physical Exam General Appearance: no apparent distress, + thin Eyes: normal inspection, sclerae normal ENT: hearing grossly normal Neck: trachea midline Respiratory/Chest: lungs clear, normal breath sounds, no respiratory distress, no accessory muscle use Cardiovascular: regular rate, rhythm, no edema, no gallop, no murmur Abdomen: soft, no organomegaly, + abnormal bowel sounds (hypoactive), + tenderness (+LLQ w/o guarding or rebound), + pertinent finding (examination of labia reveals no erythema, no vaginal discharge, no labial edema) Extremities: non-tender, normal inspection, no pedal edema, no calf tenderness Neurologic/Psychiatric: alert, normal mood/affect, oriented x 3 Skin: normal color, warm/dry, no rash Laboratory Results Last 24 Hours Test 10/10/16 06:44 White Blood Count 8.17 K/uL Red Blood Count 3.82 M/uL Hemoglobin 11.6 g/dL Hematocrit 34.0 % Mean Corpuscular Volume 89.0 fL Mean Corpuscular Hemoglobin 30.4 pg Mean Corpuscular Hemoglobin Concent 34.1 g/dl Platelet Count 330 K/uL Mean Platelet Volume 9.3 fL Neutrophils (%) (Auto) 71.2 % Lymphocytes (%) (Auto) 15.1 % Monocytes (%) (Auto) 10.0 % Eosinophils (%) (Auto) 3.5 % Basophils (%) (Auto) 0.1 % Neutrophils # (Auto) 5.81 K/uL Lymphocytes # (Auto) 1.23 K/uL Monocytes # (Auto) 0.82 K/uL Eosinophils # (Auto) 0.29 K/uL Basophils # (Auto) 0.01 K/uL RDW Standard Deviation 41.7 fL RDW Coefficient of Variation 12.8 % Immature Granulocyte % (Auto) 0.1 % Immature Granulocyte # (Auto) 0.01 K/uL Sodium Level 143 mmol/L Potassium Level 3.9 mmol/L Chloride Level 110 mmol/L Carbon Dioxide Level 23 mmol/L Anion Gap 10.0 mmol/L Blood Urea Nitrogen 5 mg/dl Creatinine 0.42 mg/dl Est Creatinine Clear Calc Drug Dose 110.5 ml/min Estimated GFR () 135.6 Estimated GFR (Non- 117.0 BUN/Creatinine Ratio 12.6 Random Glucose 97 mg/dl Calcium Level 8.2 mg/dl Magnesium Level 1.6 mg/dl Total Bilirubin 0.8 mg/dl Direct Bilirubin 0.2 mg/dl Aspartate Amino Transf (AST/SGOT) 46 U/L Alanine Aminotransferase (ALT/SGPT) 20 U/L Alkaline Phosphatase 64 U/L Total Protein 6.7 gm/dl Albumin 3.3 gm/dl 25-Hydroxy Vitamin D Total 18.5 ng/ml Thyroid Stimulating Hormone (TSH) 0.182 uIu/ml Assessment and Plan 51 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 Acute diverticulitis- WBC count 24k on admission, CT findings c/w sigmoid diverticulitis: CT abd/pel: IMPRESSION: 1. Acute sigmoid diverticulitis. No free air or abscess. 2. Indeterminate 1.5 cm lesion arising from the lower pole of the left kidney which may reflect a hyperdense cyst or solid renal lesion. A follow-up renal protocol CT is recommended. Improving. Afebrile, WBC count back to normal at 8. Now with diarrhea -continue Cipro/Flagyl -appreciate Surgical consult-no surgery indicated at this time -adv diet to clears today -check C. diff -replace Vit D with 1000 units daily as can be related to recurrent diverticulitis -adv diet as maryuri -continue IVFs as is taking minimal po HTN -BPs previously low likely from losartan overdose (was taking 100 bid on own accord at home recently--> advised only losartan max of 100mg daily Grave's Disease now with hypothryoidism-TSH here low at 0.182 but is increased from 6 months ago -continue home dose of levothyroxine Vit D deficiency-Vit D level low at 18. has h/o hypercalcemia possibly related to her mitochondrial disease? Ca++ normal now today -start Vit D 1000 units daily -follow Calcium and D levels as outpatient Renal mass-Also with incidental finding of left renal mass 1.5cm--> needs dedicated Renal CT either here or as outpatient Vaginal discharge-likely physiologic. No signs of yeast infection -observation for worsening symptoms and vag Candidiasis Diarrhea -check C. diff Proph-heparin SQ, SCDs
[2016-10-10] MEDS: MoRPHine SULFATE 4 MG/ML 1 ML CARP\\VIAL IV PRN (19:12)
[2016-10-10 23:38] VITALS: BP 144/80; PULSE 59; TEMP 37.1; O2SAT 97
[2016-10-11] MEDS: METRONIDAZOLE / NSS 500 MG in PREMIXED NSS 100 ML IV SCH ×3 (01:41→18:07)
[2016-10-11] MEDS: CIPROFLOXACIN / D5W 400 MG in PREMIXED IN D5W 200 ML IV SCH ×2 (01:41→13:32)
[2016-10-11] MEDS ORDERED: ONDANSETRON INJ 2 MG/ML 2 ML VIAL IV ONE (02:30)
[2016-10-11] MEDS: HEPARIN SOD 5000 UNIT/0.5 ML CARP SQ SCH ×3 (05:34→22:00)
[2016-10-11] MEDS ORDERED: PROMETHAZINE HCL INJ 12.5 MG in SODIUM CHLORIDE 0.9% 50ML 50 ML IV PRN (05:45)
[2016-10-11] MEDS ORDERED: NURSING VERBAL MED ORDER ONE (05:45)
[2016-10-11] MEDS: SODIUM CHLOR 0.45% + 20MEQ KCL 1,000 ML IV SCH ×2 (05:57→16:08)
--- NOTE | 2016-10-11 07:25 | Surgery Progress Note ---
Surgery Progress Note Date of Service Oct 11, 2016. Subjective Post OP Day: HD 3 + feeling well, + complaints (some nausea but not usually asoociated with diverticulitis), + flatus, + pain controlled (much improved), + diet (clears), No vomiting Objective Vital Signs: Date Time Temp Pulse Resp B/P (MAP) Pulse Ox O2 Delivery O2 Flow Rate FiO2 10/10/16 23:50 Room Air 10/10/16 23:38 37.1 59 18 144/80 (101) 97 Room Air 10/10/16 19:15 Room Air 10/10/16 14:54 37.1 54 18 124/80 (95) 97 Room Air 10/10/16 08:15 96 Room Air 10/10/16 07:55 Room Air 10/10/16 07:30 36.7 60 20 116/78 (91) 96 Room Air General Appearance: WD/WN, no apparent distress Head: normocephalic, atraumatic Neck: supple, trachea midline Respiratory/Chest: chest non-tender, lungs clear Cardiovascular: regular rate, rhythm, no gallop, no murmur Abdomen: normal bowel sounds, non distended, soft, + tenderness (mild LLQ) Extremities: non-tender, no pedal edema Laboratory Results: Results Past 24 Hours Test 10/11/16 04:44 Range/Units Microbiology Results 10/10/16 C.difficile Toxin B Gene (PCR) - Final, Complete No C. difficile toxin B gene detected Assessment & Plan acute diverticulitis -IV abx -will slow advance with nausea which has resolved this AM -WBC normal; afebrile; pain improved
[2016-10-11 07:32] VITALS: BP 108/71; PULSE 49; TEMP 37; O2SAT 96
[2016-10-11 07:47] LABS: BASO % 0.1 %; BASO ABS # 0.01 K/uL (0-0.2); COMPLETE YES; HEMATOCRIT 34.3 % (37-47); IG% 0.2 %; LYMPH % 14.2 %; MEAN CELL VOLUME 88.2 fL (80-100); MEAN CORPUSCULAR HEMOGLOBIN 30.1 pg (25-34); MEAN CORPUSCULAR HGB CONC 34.1 g/dl (32-36); MEAN PLATELET VOLUME 9.1 fL (7.4-10.4); MONO % 6.2 %; NEUT % 72.3 %; PLATELET COUNT 300 K/uL (130-400); RED BLOOD COUNT 3.89 M/uL (4.2-5.4); WHITE BLOOD COUNT 8.43 K/uL (4.8-10.8)
[2016-10-11 08:49] LABS: BUN/CREATININE RATIO 7.7 (10-20); CREATININE 0.43 mg/dl (0.60-1.20); MAGNESIUM 1.9 mg/dl (1.8-2.4); POTASSIUM 4.3 mmol/L (3.5-5.1)
[2016-10-11 08:58] LABS: CALCIUM 8.3 mg/dl (8.5-10.1)
[2016-10-11] MEDS: PANTOprazole SOD 40 MG TAB PO SCH (13:30)
[2016-10-11] MEDS: CHOLECALCIFEROL 1000 INTER.UNIT TAB PO SCH (13:30)
[2016-10-11] MEDS: LEVOTHYROXINE 75 MCG TAB PO SCH (13:30)
[2016-10-11] MEDS: LOSARTAN POTASSIUM 50 MG TAB PO SCH (13:32)
[2016-10-11 15:24] VITALS: BP 154/97; PULSE 63; TEMP 37; O2SAT 98
[2016-10-11 15:46] VITALS: BP 152/96
--- NOTE | 2016-10-11 17:16 | Hospitalist Progress Note ---
Hospitalist Progress Note Date of Service Oct 11, 2016. Subjective Pt evaluation today including: conversation w/ patient Pt was feeling nauseated earlier and thinks it might be from the abx. Still with multiple rounds of explosive gas with small bits of stool, nonbloody. Has no LLQ abd pain at all now. Afebrile All Other Systems: Reviewed and Negative Objective Vital Signs Date Time Temp Pulse Resp B/P (MAP) Pulse Ox O2 Delivery O2 Flow Rate FiO2 10/11/16 15:46 152/96 (114) 10/11/16 15:24 37.0 63 16 154/97 (116) 98 Room Air 10/11/16 07:58 Room Air 10/11/16 07:32 37.0 49 15 108/71 (83) 96 Room Air 10/10/16 23:50 Room Air 10/10/16 23:38 37.1 59 18 144/80 (101) 97 Room Air 10/10/16 19:15 Room Air Physical Exam General Appearance: no apparent distress, + thin Eyes: normal inspection, sclerae normal ENT: hearing grossly normal Neck: trachea midline Respiratory/Chest: lungs clear, normal breath sounds, no respiratory distress, no accessory muscle use Cardiovascular: regular rate, rhythm, no edema, no gallop, no murmur Abdomen: normal bowel sounds, non tender, soft, no organomegaly Extremities: non-tender, normal inspection, no pedal edema, no calf tenderness Neurologic/Psychiatric: alert, normal mood/affect, oriented x 3 Skin: normal color, warm/dry, no rash Laboratory Results Last 24 Hours Test 10/11/16 07:40 White Blood Count 8.43 K/uL Red Blood Count 3.89 M/uL Hemoglobin 11.7 g/dL Hematocrit 34.3 % Mean Corpuscular Volume 88.2 fL Mean Corpuscular Hemoglobin 30.1 pg Mean Corpuscular Hemoglobin Concent 34.1 g/dl Platelet Count 300 K/uL Mean Platelet Volume 9.1 fL Neutrophils (%) (Auto) 72.3 % Lymphocytes (%) (Auto) 14.2 % Monocytes (%) (Auto) 6.2 % Eosinophils (%) (Auto) 7.0 % Basophils (%) (Auto) 0.1 % Neutrophils # (Auto) 6.09 K/uL Lymphocytes # (Auto) 1.20 K/uL Monocytes # (Auto) 0.52 K/uL Eosinophils # (Auto) 0.59 K/uL Basophils # (Auto) 0.01 K/uL RDW Standard Deviation 40.6 fL RDW Coefficient of Variation 12.7 % Immature Granulocyte % (Auto) 0.2 % Immature Granulocyte # (Auto) 0.02 K/uL Sodium Level 141 mmol/L Potassium Level 4.3 mmol/L Chloride Level 108 mmol/L Carbon Dioxide Level 23 mmol/L Anion Gap 10.0 mmol/L Blood Urea Nitrogen 3 mg/dl Creatinine 0.43 mg/dl Est Creatinine Clear Calc Drug Dose 108.0 ml/min Estimated GFR () 134.6 Estimated GFR (Non- 116.1 BUN/Creatinine Ratio 7.7 Random Glucose 93 mg/dl Calcium Level 8.3 mg/dl Magnesium Level 1.9 mg/dl Total Bilirubin 0.7 mg/dl Direct Bilirubin 0.1 mg/dl Aspartate Amino Transf (AST/SGOT) 41 U/L Alanine Aminotransferase (ALT/SGPT) 22 U/L Alkaline Phosphatase 57 U/L Total Protein 6.3 gm/dl Albumin 3.1 gm/dl Assessment and Plan 51 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 Acute diverticulitis- WBC count 24k on admission, CT findings c/w sigmoid diverticulitis: CT abd/pel: IMPRESSION: 1. Acute sigmoid diverticulitis. No free air or abscess. 2. Indeterminate 1.5 cm lesion arising from the lower pole of the left kidney which may reflect a hyperdense cyst or solid renal lesion. A follow-up renal protocol CT is recommended. Much improved, no pain, on clears but thinks this is worsening her chronic diarrhea. Afebrile, WBC count back to normal at 8. Now with continued diarrhea -continue Cipro/Flagyl but could be causing her nausea-however has allergies to sulfa and Augmentin so limited for other abx options for on discharge C. diff negative -appreciate Surgical consult-no surgery indicated at this time -adv diet to full liquids tonight and low residue tomorrow if tolerating -replace Vit D with 1000 units daily as can be related to recurrent diverticulitis -dc IVFs -hopeful to dc tomorrow to home with po CIpro/Flagyl for total 10 day course -will need colonoscopy and f/u with her GI in 6 weeks as last one was 5 yrs ago HTN--BPs previously low likely from losartan overdose (was taking 100 bid on own accord at home recently, now are rising again -continue losartan max of 100mg daily -counseled to not dose own meds without guidance of a physician -may need to add on another med in future Grave's Disease now with hypothyroidism-TSH here low at 0.182 but is increased from 6 months ago -continue home dose of levothyroxine Vit D deficiency-Vit D level low at 18. has h/o hypercalcemia possibly related to her mitochondrial disease? Ca++ normal now today -start Vit D 1000 units daily -follow Calcium and D levels as outpatient -calcium level here is normal Renal mass-Also with incidental finding of left renal mass 1.5cm--> needs dedicated Renal CT either here or as outpatient Vaginal discharge-likely physiologic. No signs of yeast infection-resolved -observation for worsening symptoms and vag Candidiasis Diarrhea-C. diff negative -has chronic GI issues usually related to various medications -no treatment at this time Proph-heparin SQ-she is declining this, SCDs
[2016-10-11 20:06] VITALS: BP 126/79; TEMP 37.2; O2SAT 98
[2016-10-11 23:22] VITALS: BP 147/86; PULSE 59; TEMP 37.2; O2SAT 96
[2016-10-11] MEDS: ACETAMINOPHEN 325 MG TAB PO PRN (23:35)
[2016-10-12] MEDS: CIPROFLOXACIN / D5W 400 MG in PREMIXED IN D5W 200 ML IV SCH (02:58)
[2016-10-12] MEDS: METRONIDAZOLE / NSS 500 MG in PREMIXED NSS 100 ML IV SCH ×2 (02:58→12:27)
[2016-10-12] MEDS: HEPARIN SOD 5000 UNIT/0.5 ML CARP SQ SCH (05:04)
[2016-10-12] MEDS: LEVOTHYROXINE 75 MCG TAB PO SCH (05:07)
[2016-10-12] MEDS: ACETAMINOPHEN 325 MG TAB PO PRN (05:08)
[2016-10-12 06:57] LABS: HEMATOCRIT 35.4 % (37-47); MEAN CORPUSCULAR HGB CONC 33.3 g/dl (32-36); MEAN PLATELET VOLUME 9.4 fL (7.4-10.4); PLATELET COUNT 350 K/uL (130-400); RED BLOOD COUNT 4.07 M/uL (4.2-5.4); WHITE BLOOD COUNT 5.58 K/uL (4.8-10.8)
[2016-10-12 07:27] LABS: BUN/CREATININE RATIO 7.4 (10-20); CALCIUM 8.6 mg/dl (8.5-10.1); CREATININE 0.41 mg/dl (0.60-1.20); MAGNESIUM 1.8 mg/dl (1.8-2.4); POTASSIUM 3.9 mmol/L (3.5-5.1)
[2016-10-12 07:53] VITALS: BP 131/86; PULSE 55; TEMP 36.5; O2SAT 94
[2016-10-12] MEDS: LOSARTAN POTASSIUM 50 MG TAB PO SCH (08:30)
[2016-10-12] MEDS: CHOLECALCIFEROL 1000 INTER.UNIT TAB PO SCH (08:31)
[2016-10-12] MEDS: PANTOprazole SOD 40 MG TAB PO SCH (08:31)
--- NOTE | 2016-10-12 10:21 | Surgery Progress Note ---
Surgery Progress Note Date of Service Oct 12, 2016. Subjective Post OP Day: HD 4 + feeling well, + bowel movement, + flatus, + diet (advance as tolerated), No complaints, No nausea, No vomiting Objective Vital Signs: Date Time Temp Pulse Resp B/P (MAP) Pulse Ox O2 Delivery O2 Flow Rate FiO2 10/12/16 07:53 36.5 55 16 131/86 (101) 94 Room Air 10/11/16 23:30 Room Air 10/11/16 23:22 37.2 59 14 147/86 (106) 96 Room Air 10/11/16 20:06 37.2 21 126/79 (95) 98 Room Air 10/11/16 16:00 Room Air 10/11/16 15:46 152/96 (114) 10/11/16 15:24 37.0 63 16 154/97 (116) 98 Room Air General Appearance: WD/WN, no apparent distress Head: normocephalic, atraumatic Neck: supple, trachea midline Respiratory/Chest: lungs clear Cardiovascular: regular rate, rhythm Abdomen: normal bowel sounds, non tender, non distended, soft Extremities: non-tender, no pedal edema Laboratory Results: Results Past 24 Hours Test 10/12/16 06:14 Range/Units White Blood Count 5.58 4.8-10.8 K/uL Red Blood Count 4.07 4.2-5.4 M/uL Hemoglobin 11.8 12.0-16.0 g/dL Hematocrit 35.4 37-47 % Mean Corpuscular Volume 87.0 80-100 fL Mean Corpuscular Hemoglobin 29.0 25-34 pg Mean Corpuscular Hemoglobin Concent 33.3 32-36 g/dl RDW Standard Deviation 39.9 36.4-46.3 fL RDW Coefficient of Variation 12.4 11.5-14.5 % Platelet Count 350 130-400 K/uL Mean Platelet Volume 9.4 7.4-10.4 fL Sodium Level 142 136-145 mmol/L Potassium Level 3.9 3.5-5.1 mmol/L Chloride Level 109 98-107 mmol/L Carbon Dioxide Level 23 21-32 mmol/L Anion Gap 10.0 3-11 mmol/L Blood Urea Nitrogen 3 7-18 mg/dl Creatinine 0.41 0.60-1.20 mg/dl Est Creatinine Clear Calc Drug Dose 113.2 ml/min Estimated GFR () 136.7 Estimated GFR (Non- 118.0 BUN/Creatinine Ratio 7.4 10-20 Random Glucose 90 70-99 mg/dl Calcium Level 8.6 8.5-10.1 mg/dl Magnesium Level 1.8 1.8-2.4 mg/dl Total Bilirubin 0.7 0.2-1 mg/dl Direct Bilirubin 0.1 0-0.2 mg/dl Aspartate Amino Transf (AST/SGOT) 38 15-37 U/L Alanine Aminotransferase (ALT/SGPT) 20 12-78 U/L Alkaline Phosphatase 60 45-117 U/L Total Protein 6.4 6.4-8.2 gm/dl Albumin 3.2 3.4-5.0 gm/dl Assessment & Plan acute diverticulitis -discharge per medical team -switch to po abx -advance diet as tolerated -WBC normal; afebrile -will need follow up with GI medicine for colonoscopy -no surgical follow up at this time -will sign off
[2016-10-12 11:30] VITALS: BP 131/86; PULSE 55; TEMP 36.5; O2SAT 94
[2016-10-12] MEDS ORDERED: NURSING VERBAL MED ORDER ONE (11:30)
[2016-10-12] MEDS ORDERED: METRONIDAZOLE 500 MG TAB PO ONE (11:45)
[2016-10-12] MEDS ORDERED: METR500T PO (11:48)
[2016-10-12] MEDS ORDERED: CPR500 PO (11:48)
[2016-10-12] MEDS ORDERED: VTMD1000 PO (11:48)
[2016-10-12] MEDS ORDERED: FLUC150T PO (11:49)
--- NOTE | 2016-10-12 12:01 | Discharge Instructions ---
Discharge Instructions Date of Service Oct 12, 2016. Admission Reason for Admission: Diverticulitis Discharge Discharge Diagnosis / Problem: Acute diverticulitis Discharge Goals Goal(s): Improve disease control, Diagnostic testing, Therapeutic intervention Activity Recommendations Activity Limitations: resume your previous activity Lifting Limitations: none Exercise/Sports Limitations: gradually increase as tolerated Shower/Bathe: no limitations Driving or Machine Use: no limitations . Instructions / Follow-Up Instructions / Follow-Up You were admitted with acute diverticulitis. You were treated with antibiotics and bowel rest and had improvement. You should finish out the full course of oral antibiotics with Cipro and Flagyl. You should follow up with Dr. Remy/GI within 1 month and will need a repeat colonoscopy in about 6 weeks. Your blood pressure was initially low possibly from taking too much losartan at home and from being sick. It is now trending back up again. Please follow up with your PCP about your blood pressure. You also were found to have a 1.5 cm left kidney lesion. You will need a Renal CT scan to further assess this and your PCP can also order this. Current Hospital Diet Patient's current hospital diet: Low Fiber Diet Discharge Diet Recommended Diet: Low Fiber Diet Procedures Procedures Performed: CT abdomen/pelvis Pending Studies Studies pending at discharge: no Laboratory Results Last 24 Hours Test 10/12/16 06:14 White Blood Count 5.58 K/uL Red Blood Count 4.07 M/uL Hemoglobin 11.8 g/dL Hematocrit 35.4 % Mean Corpuscular Volume 87.0 fL Mean Corpuscular Hemoglobin 29.0 pg Mean Corpuscular Hemoglobin Concent 33.3 g/dl RDW Standard Deviation 39.9 fL RDW Coefficient of Variation 12.4 % Platelet Count 350 K/uL Mean Platelet Volume 9.4 fL Sodium Level 142 mmol/L Potassium Level 3.9 mmol/L Chloride Level 109 mmol/L Carbon Dioxide Level 23 mmol/L Anion Gap 10.0 mmol/L Blood Urea Nitrogen 3 mg/dl Creatinine 0.41 mg/dl Est Creatinine Clear Calc Drug Dose 113.2 ml/min Estimated GFR () 136.7 Estimated GFR (Non- 118.0 BUN/Creatinine Ratio 7.4 Random Glucose 90 mg/dl Calcium Level 8.6 mg/dl Magnesium Level 1.8 mg/dl Total Bilirubin 0.7 mg/dl Direct Bilirubin 0.1 mg/dl Aspartate Amino Transf (AST/SGOT) 38 U/L Alanine Aminotransferase (ALT/SGPT) 20 U/L Alkaline Phosphatase 60 U/L Total Protein 6.4 gm/dl Albumin 3.2 gm/dl Medical Emergencies . Who to Call and When: Medical Emergencies: If at any time you feel your situation is an emergency, please call 911 immediately. . Non-Emergent Contact Non-Emergency issues call your: Primary Care Provider, [employer] Supervisor Call Non-Emergent contact if: you have a fever, your pain is not controlled, your pain is worsening, your pain is unusual for you, your pain is concerning you, you have any medication questions . . "Provider Documentation" section prepared by Delia Winkler. . VTE Core Measure Inpt VTE Proph given/why not?: Unfractionated heparin SQ
--- NOTE | 2016-10-29 22:58 | Discharge Summary ---
Discharge Summary Date of Service Oct 12, 2016. Discharge Summary Admission Date: Oct 09, 2016 at 03:26 Discharge Date: Oct 12, 2016 Discharge Disposition: Home Principal Diagnosis: Acute diverticulitis Problems/Secondary Diagnoses: Mitochondrial disease HTN Acquired Hypothyroidism Grave's disease Asthma Osteoporosis Vit D deficiency Chronic lactic acidosis Indeterminate 1.5 cm left kidney lesion Chronic Diarrhea Immunizations: Have You Had Influenza Vaccine: No History of Tetanus Vaccine?: Yes History of Pneumococcal: No History of Hepatitis B Vaccine: No Procedures: CT OF THE ABDOMEN AND PELVIS WITH CONTRAST CLINICAL HISTORY: Suprapubic pain. Evaluate for acute diverticulitis. COMPARISON STUDY: CT of the abdomen and pelvis September 04, 2005 and right upper quadrant ultrasound January 26, 2013. TECHNIQUE: Following IV administration of 92 mL of Optiray-320, axial images of the abdomen and pelvis were obtained from the lung bases to the proximal femurs. Images were reviewed in the axial, sagittal, and coronal planes. IV contrast was administered without complication. CT DOSE: 253.68 mGy.cm FINDINGS: There is a 6 lm right hepatic dome cyst. The spleen, adrenal glands and pancreas are unremarkable. There is mild right pelvicaliectasis without hydronephrosis. There are numerous water attenuation renal lesions which are consistent with cysts. Note is made of a 1.5 cm hyperdense lesion arising from the lower pole of the left kidney. This is indeterminate. There is no evidence for a bowel obstruction. There is sigmoid diverticulosis with mild wall thickening of the sigmoid colon and mild adjacent infiltration and fluid. There is no free air or abscess. Skeletal structures are unremarkable. There is no lymphadenopathy. IMPRESSION: 1. Acute sigmoid diverticulitis. No free air or abscess. 2. Indeterminate 1.5 cm lesion arising from the lower pole of the left kidney which may reflect a hyperdense cyst or solid renal lesion. A follow-up renal protocol CT is recommended. Consultations: General Surgery Medication Reconciliation New Medications: Ciprofloxacin (Ciprofloxacin HCl) 500 Mg Tab 500 MG PO BID for 7 Days, #14 TAB Cholecalciferol (Vitamin D3) 1,000 Inter.unit Tab 1000 INTER.UNIT PO QAM for 30 Days, TAB Continued Medications: Albuterol Hfa (Ventolin Hfa) 200 Puffs/77426 Mcg Aers 2-4 PUFFS INH Q6H PRN for SOB/Wheezing, #1 INHALER Aspirin (Selina Aspirin Ec Low Dose) 81 Mg Tab 1 TAB PO DAILY for 90 Days, #90 TAB 3 Refills Calcium Citrate-Vitamin D (Citracal + D3 Maximum) 1 Tab Tab 1 TAB PO DAILY Levothyroxine Sodium (Levothyroxine Sodium) 75 Mcg Tab 1 TAB PO DAILY for 90 Days, #90 TAB 3 Refills Losartan Potassium (Cozaar) 100 Mg Tab 100 MG PO DAILY, TAB Multiple Vitamins W/ Minerals (Ocuvite Adult 50+) 1 Cap Cap 1 CAP PO DAILY Pantoprazole (Protonix) 20 Mg Tab 20 MG PO DAILY, #30 TAB Discontinued Medications: Amlodipine (Norvasc) 5 Mg Tab 5 MG PO DAILY, TAB Discharge Exam DOing very well. No abdominal pain, no N/V, ready for discharge Physical Exam General Appearance: no apparent distress, + thin Eyes: normal inspection, sclerae normal ENT: hearing grossly normal Neck: trachea midline Respiratory/Chest: lungs clear, normal breath sounds, no respiratory distress, no accessory muscle use Cardiovascular: regular rate, rhythm, no edema, no gallop, no murmur Abdomen: normal bowel sounds, non tender, soft, no organomegaly Extremities: non-tender, normal inspection, no pedal edema, no calf tenderness Neurologic/Psychiatric: alert, normal mood/affect, oriented x 3 Skin: normal color, warm/dry, no rash Review of Systems: Constitutional: No fever Eyes: No problem reported ENT: No problem reported Respiratory: No shortness of breath Cardiovascular: No chest pain Abdomen: + diarrhea, No pain, No nausea, No vomiting Musculoskeletal: No problem reported Genitourinary - Female: No problem reported Neurologic: No problem reported Psychiatric: No problem reported Endocrine: No problem reported Hematologic / Lymphatic: No problem reported Integumentary: No problem reported Hospital Course 51 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 Acute diverticulitis- WBC count 24k on admission, CT findings c/w sigmoid diverticulitis: CT abd/pel: IMPRESSION: 1. Acute sigmoid diverticulitis. No free air or abscess. 2. Indeterminate 1.5 cm lesion arising from the lower pole of the left kidney which may reflect a hyperdense cyst or solid renal lesion. A follow-up renal protocol CT is recommended. Much improved, no pain, tolerating regular diet. Afebrile, WBC count back to normal. -continue Cipro/Flagyl to complete course of 10 days C. diff negative -appreciate Surgical consult-no surgery indicated at this time -replace Vit D with 1000 units daily as can be related to recurrent diverticulitis -will need colonoscopy and f/u with her GI in 6 weeks as last one was 5 yrs ago HTN--BPs previously low likely from losartan overdose (was taking 100 bid on own accord at home recently, now are rising again) -continue losartan max of 100mg daily -counseled to not dose own meds without guidance of a physician -may need to add on another med in future Grave's Disease now with hypothyroidism-TSH here low at 0.182 but is increased from 6 months ago -continue home dose of levothyroxine Vit D deficiency-Vit D level low at 18. has h/o hypercalcemia possibly related to her mitochondrial disease? Ca++ normal now today -start Vit D 1000 units daily -follow Calcium and D levels as outpatient -calcium level here is normal Renal mass-Also with incidental finding of left renal mass 1.5cm--> needs dedicated Renal CT either here or as outpatient Vaginal discharge-likely physiologic. No signs of yeast infection-resolved -observation for worsening symptoms and vag Candidiasis Diarrhea-C. diff negative -has chronic GI issues usually related to various medications -no treatment at this time Proph-heparin SQ-she is declining this, SCDs Dispo- to home today Total Time Spent: Greater than 30 minutes This includes examination of the patient, discharge planning, medication reconciliation, and communication with other providers. Discharge Instructions Please refer to the electronic Patient Visit Report (Discharge Instructions) for additional information. Follow-Up PCP within 1 week GI in 1 month Additional Copies To Chalino Engle M.D.
== END 2016-10-12 14:06 | disposition home or self-care (01) | DRG 392 ==
LOC: C.EDB 23:32 → C.MSN 10-09 03:26 → ENRESERV 10-09 03:36
PROVIDERS: ADMIT Internal Medicine; ATTEND Family Medicine
DX: K57.32 Diverticulitis of large intestine without perforation or abscess without bleeding (principal); E87.2 Acidosis; I10 Essential (primary) hypertension; E05.00 Thyrotoxicosis with diffuse goiter without thyrotoxic crisis or storm; E03.9 Hypothyroidism, unspecified; E55.9 Vitamin D deficiency, unspecified; N28.89 Other specified disorders of kidney and ureter; G71.3 Mitochondrial myopathy, not elsewhere classified; J45.909 Unspecified asthma, uncomplicated; M81.0 Age-related osteoporosis without current pathological fracture; E78.5 Hyperlipidemia, unspecified; Z86.73 Personal history of transient ischemic attack (TIA), and cerebral infarction without residual deficits; Z79.899 Other long term (current) drug therapy; Z79.82 Long term (current) use of aspirin

== ENCOUNTER → 2016-11-28 | Outpatient (CLI) | payer OTHER ==
[~2016-11-28] MED LIST changes: -ALBUAER2 INH; -ALPH150C PO; -ASPEC81 PO; +ASPI1TAB2 PO; +CALC1TAB9 PO; -CLOP1TAB15 PO; -CONJ.6255 PO; +CPR500 PO; -DILT120C68 PO; -ERGO1TAB10 PO; -FOLI1POW10; -HYDC25 PO; +LEVO75TA5 PO; -MULT-663 PO; +MULTCAP94 PO; -NUTR750C PO; -SNG10 PO; -SYN75 PO; +VNTHFA/IN INH; +VTMD1000 PO; -[UNRECOGNIZED DRUG - CODE] PO
[2016-11-28 17:35] LABS: BLOOD UREA NITROGEN 13 mg/dl (7-18); BUN/CREATININE RATIO 26.2 (10-20); CALCIUM 10.8 mg/dl (8.5-10.1); CARBON DIOXIDE 27 mmol/L (21-32); CHLORIDE 100 mmol/L (98-107); GLUCOSE 82 mg/dl (70-99); MAGNESIUM 1.6 mg/dl (1.8-2.4); POTASSIUM 4.9 mmol/L (3.5-5.1); SODIUM 137 mmol/L (136-145)
[2016-11-28 17:46] LABS: THYROID STIMULATING HORMONE 0.419 uIu/ml (0.300-4.500)
== END | disposition home or self-care (01) ==
LOC: C.LABBFT 10:11
PROVIDERS: ATTEND Nurse Practitioner
DX: E88.40 Mitochondrial metabolism disorder, unspecified (principal); E55.9 Vitamin D deficiency, unspecified; E03.9 Hypothyroidism, unspecified; I10 Essential (primary) hypertension

== ENCOUNTER → 2017-01-09 | Outpatient (CLI) | payer OTHER ==
[~2017-01-09] MED LIST changes: +OPTIRAY 320 IV PRN
--- NOTE | 2017-01-09 13:04 | DIAGNOSTIC IMAGING REPORT ---
ABD/PELVIS IV CONTRAST ONLY CT DOSE: 277.59 mGy.cm HISTORY: Pain R39.9 Abnormal renal [id number] TECHNIQUE: Multiaxial CT images of the abdomen and pelvis were performed following the use of intravenous contrast. A dose lowering technique was utilized adhering to the principles of ALARA. COMPARISON STUDY: 10/09/2016 FINDINGS: Lung bases remain clear. Liver is uniform throughout. Right kidney remains moderately enlarged but is generally uniform in terms of enhancement characteristics. There is a right renal axial pelvis unchanged from the prior study. The slightly thick-walled cystic type lesion lower pole left kidney is unchanged. Several small microcysts are present unchanged. Spleen is uniform. Bowel pattern is nonobstructive. There is no significant abdominal pelvic or inguinal adenopathy. IMPRESSION: Stable complex slightly thick-walled cystic lesion lower pole left kidney.. 2. Study is otherwise negative. 3. Instill note is made of 1.5 cm left ovarian cyst. 4. Continued close surveillance of the complex cystic change lower pole left kidney is recommended. The above report was generated using voice recognition software. It may contain grammatical, syntax or spelling errors. Electronically signed by: Oscar Whitaker M.D. 01/09/2017 1:02 PM Dictated Date/Time: 01/09/2017 12:31 PM
== END | disposition home or self-care (01) ==
LOC: C.CTS 11:49
PROVIDERS: ATTEND Internal Medicine
DX: R39.9 Unspecified symptoms and signs involving the genitourinary system (principal)

== ENCOUNTER → 2017-01-18 | Outpatient (CLI) | payer OTHER ==
[~2017-01-18] MED LIST changes: -OPTIRAY 320 IV PRN
[2017-01-18 16:50] LABS: BLOOD UREA NITROGEN 12 mg/dl (7-18); BUN/CREATININE RATIO 24.9 (10-20); CALCIUM 10.5 mg/dl (8.5-10.1); CARBON DIOXIDE 25 mmol/L (21-32); CHLORIDE 101 mmol/L (98-107); CREATININE 0.47 mg/dl (0.60-1.20); GLUCOSE 66 mg/dl (70-99); PHOSPHORUS 3.1 mg/dl (2.5-4.9); POTASSIUM 4.3 mmol/L (3.5-5.1); SODIUM 138 mmol/L (136-145)
== END | disposition home or self-care (01) ==
LOC: C.LABBFT 12:59
PROVIDERS: ATTEND Internal Medicine
DX: E83.52 Hypercalcemia (principal)

== ENCOUNTER → 2017-01-21 | Outpatient (CLI) | payer OTHER ==
[2017-01-21 17:58] LABS: THYROID STIMULATING HORMONE 0.283 uIu/ml (0.300-4.500)
== END | disposition home or self-care (01) ==
LOC: C.LABBFT 15:28
PROVIDERS: ATTEND Internal Medicine
DX: E03.9 Hypothyroidism, unspecified (principal); E83.52 Hypercalcemia

== ENCOUNTER → 2017-02-05 | Outpatient (CLI) | payer OTHER ==
--- NOTE | 2017-02-05 12:56 | DIAGNOSTIC IMAGING REPORT ---
CHEST 2 VIEWS ROUTINE CLINICAL HISTORY: 51 years-old Female presenting with R63.4 Weight [id number]. TECHNIQUE: PA and lateral views of the chest were obtained. COMPARISON: 09/29/2010. FINDINGS: Atherosclerosis of aortic arch. Cardiac silhouette normal in size. Lungs remain mildly hyperinflated. Lungs and pleural spaces clear. Osseous structures normal. Upper abdomen normal. IMPRESSION: 1. No convincing evidence of acute cardiopulmonary disease. Electronically signed by: David Wu M.D. 02/05/2017 12:54 PM Dictated Date/Time: 02/05/2017 12:50 PM
== END | disposition home or self-care (01) ==
LOC: C.RAD1850 12:38
PROVIDERS: ATTEND Internal Medicine
DX: R63.4 Abnormal weight loss (principal)

== ENCOUNTER → 2017-02-06 | Outpatient (CLI) | payer OTHER | END | disposition home or self-care (01) | LOC: C.PAPS 11:21 | PROVIDERS: ATTEND Obstetrics & Gynecology | DX: Z12.4 Encounter for screening for malignant neoplasm of cervix (principal) ==

== ENCOUNTER → 2017-02-15 | Outpatient (CLI) | payer OTHER ==
--- NOTE | 2017-02-15 15:00 | DIAGNOSTIC IMAGING REPORT ---
R RIBS UNILATERAL WITH PA CHEST CLINICAL HISTORY: Right sided rib pain. COMPARISON STUDY: Chest radiograph February 05, 2017. FINDINGS: Lung volumes are normal. Lungs are clear. No pneumothorax or pleural effusion is present. Pulmonary vascularity is normal. No acute right-sided rib fractures are identified. IMPRESSION: No pneumothorax. No acute right rib fractures identified. Electronically signed by: Mahesh Bonilla M.D. 02/15/2017 2:59 PM Dictated Date/Time: 02/15/2017 2:56 PM
== END | disposition home or self-care (01) ==
LOC: C.RAD1850 14:41
PROVIDERS: ATTEND Physician Assistant Medical
DX: R07.81 Pleurodynia (principal)

== ENCOUNTER → 2017-05-16 | Outpatient (CLI) | payer BC ==
[2017-05-16 17:46] LABS: BASO % 0.6 %; BASO ABS # 0.04 K/uL (0-0.2); EOS % 2.5 %; EOS ABS # 0.18 K/uL (0-0.5); HEMOGLOBIN 13.3 g/dL (12.0-16.0); IG# 0.01 K/uL (0.00-0.02); MEAN CELL VOLUME 90.7 fL (80-100); MEAN CORPUSCULAR HEMOGLOBIN 30.9 pg (25-34); MEAN CORPUSCULAR HGB CONC 34.1 g/dl (32-36); MEAN PLATELET VOLUME 9.6 fL (7.4-10.4); MONO % 5.8 %; MONO ABS # 0.41 K/uL (0.11-0.59); NEUT ABS # 4.25 K/uL (1.4-6.5); PLATELET COUNT 452 K/uL (130-400); RED CELL DISTRIBUTION WIDTH CV 13.1 % (11.5-14.5); RED CELL DISTRIBUTION WIDTH SD 43.1 fL (36.4-46.3); WHITE BLOOD COUNT 7.09 K/uL (4.8-10.8)
[2017-05-16 18:20] LABS: ALBUMIN 4.4 gm/dl (3.4-5.0); ALT/SGPT 23 U/L (12-78); BLOOD UREA NITROGEN 13 mg/dl (7-18); CALCIUM 10.4 mg/dl (8.5-10.1); CARBON DIOXIDE 25 mmol/L (21-32); CREATININE 0.42 mg/dl (0.60-1.20); GLUCOSE 83 mg/dl (70-99); POTASSIUM 4.5 mmol/L (3.5-5.1); SODIUM 134 mmol/L (136-145)
[2017-05-16 18:31] LABS: ALKALINE PHOSPHATASE 67 U/L (45-117); AST/SGOT 55 U/L (15-37); PHOSPHORUS 2.9 mg/dl (2.5-4.9); TOTAL PROTEIN 8.5 gm/dl (6.4-8.2)
== END | disposition home or self-care (01) ==
LOC: C.LABBFT 15:35
PROVIDERS: ATTEND Internal Medicine Nephrology
DX: E83.52 Hypercalcemia (principal); E03.9 Hypothyroidism, unspecified

== ENCOUNTER → 2017-06-18 | Outpatient (CLI) | payer BC ==
[~2017-06-18] MED LIST changes: +OPTIRAY 320 IV PRN
--- NOTE | 2017-06-18 15:52 | DIAGNOSTIC IMAGING REPORT ---
ABDOMEN COMBO CLINICAL HISTORY: 51 years-old Female presenting with N28.1 Renal cyst, acquired Renal Lesion Protocol CT scan to asses. TECHNIQUE: Multidetector CT of the abdomen was performed before and after the administration of intravenous contrast. IV contrast: 116 mL of Optiray 320. A dose lowering technique was used consistent with the principles of ALARA (as low as reasonably achievable). COMPARISON: 01/09/2017. CT DOSE (mGy.cm): The estimated cumulative dose is 382.68 mGycm. FINDINGS: Trimmer Press Clippings topogram: Unremarkable. Lung bases: Lung bases clear. Normal heart size. No pericardial or pleural effusion. Liver: Normal morphology. Well-defined subcentimeter hypodensity at the hepatic dome likely hepatic cyst or hamartoma. Patent hepatic vasculature. Biliary: No intrahepatic or extrahepatic biliary ductal dilatation. Normal gallbladder. Pancreas: Normal. Spleen: Normal. Adrenal glands: Normal. Kidneys and ureters: 3 mm fat-containing lesion in the interpolar region of the left kidney consistent with angiomyolipoma. Multiple well-defined hypodensities the majority in the left kidney. These are fluid density consistent with simple cysts. However, a slightly hyperdense lesion measuring 1.7 cm at the lower pole has an elevated density on precontrast imaging (61 Hounsfield units) and does not demonstrate enhancement on early (60 Hounsfield units) or delayed phases (56 Hounsfield units). This is consistent with a hemorrhagic or proteinaceous cyst. No hydronephrosis. No filling defect within the urinary collecting systems. No nephrolithiasis. Proximal ureters normal. Bowel: Normal. No bowel obstruction. Peritoneal cavity: No free fluid or intraperitoneal gas. Lymph nodes: No enlarged lymph nodes in the abdomen. Vasculature: Atherosclerosis of the normal caliber abdominal aorta. IVC patent. Abdominal wall: Small fat-containing umbilical hernia. Musculoskeletal: Normal. IMPRESSION: 1. Findings consistent with hemorrhagic or proteinaceous 1.7 cm lower pole left renal cyst. No evidence of a complex cystic or solid renal mass. 2. 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 Electronically signed by: David Wu M.D. 06/18/2017 3:51 PM Dictated Date/Time: 06/18/2017 3:43 PM
== END | disposition home or self-care (01) ==
LOC: C.CTS 14:44
PROVIDERS: ATTEND Urology
DX: N28.1 Cyst of kidney, acquired (principal); D17.71 Benign lipomatous neoplasm of kidney

== ENCOUNTER → 2017-06-24 | Outpatient (CLI) | payer BC, OTHER ==
[~2017-06-24] MED LIST changes: -OPTIRAY 320 IV PRN
== END | disposition home or self-care (01) ==
LOC: C.MAMM 13:29
PROVIDERS: ATTEND Internal Medicine Nephrology
DX: E83.52 Hypercalcemia (principal); M85.852 Other specified disorders of bone density and structure, left thigh; M85.851 Other specified disorders of bone density and structure, right thigh

== ENCOUNTER → 2017-07-09 | Outpatient (CLI) | payer BC, OTHER ==
--- NOTE | 2017-07-11 08:01 | MAMMOGRAPHY REPORT ---
BILATERAL DIGITAL SCREENING MAMMOGRAM TOMOSYNTHESIS WITH CAD: 07/09/2017 CLINICAL HISTORY: Routine screening. Patient has no complaints. TECHNIQUE: Breast tomosynthesis in addition to standard 2D mammography was performed. Current study was also evaluated with a Computer Aided Detection (CAD) system. COMPARISON: Comparison is made to exams dated: 02/26/2012 mammogram - [facility] a nd 04/16/2004 mammogram - [facility]. BREAST COMPOSITION: The tissue of both breasts is heterogeneously dense, which may obscure small mas ses. FINDINGS: No suspicious mass, architectural distortion, asymmetry or cluster of suspicious microcalc ifications is seen. IMPRESSION: ACR BI-RADS CATEGORY 1: NEGATIVE There is no mammographic evidence of malignancy. A 1 year screening mammogram is recommended. The pa tient will receive written notification of the results. Approximately 10% of breast cancers are not detected with mammography. A negative mammographic report should not delay biopsy if a clinically suggestive mass is present. Susy Lozoya M.D. ay/:07/09/2017 16:44:12 Delivery Aide: Jennifer Padilla RT(R)(M)(BD), [facility] letter sent: Normal 1/2 BI-RADS Code: ACR BI-RADS Category 1: Negative
== END | disposition home or self-care (01) ==
LOC: C.MAMM 13:55
PROVIDERS: ATTEND Internal Medicine
DX: Z12.31 Encounter for screening mammogram for malignant neoplasm of breast (principal)

== ENCOUNTER 2019-04-01 11:06 | Inpatient (IN) ==
[2019-04-01] MEDS ORDERED: cefTRIAXone SODIUM 1,000 MG/50 ML BAG IV STA (11:26)
[2019-04-01] MEDS ORDERED: SODIUM CHLORIDE 0.9% 1000ML 2,000 ML IV ONE (11:26)
[2019-04-01 11:56] LABS: Eosinophils # (auto) 0.03 K/uL (0-0.5); Eosinophils % (auto) 0.2 %; Hematocrit (blood only) 41.6 % (37-47); Hemoglobin 14.6 g/dL (12.0-16.0); Immature Granulocytes # (auto) 0.04 K/uL (0.00-0.02); Immature Granulocytes % (auto) 0.2 %; Lymphocytes # (auto) 0.66 K/uL (1.2-3.4); Lymphocytes % (auto) 3.9 %; Mean Corpuscular Hemoglobin 32.7 pg (25-34); Mean Corpuscular Hgb Conc 35.1 g/dL (32-36); Mean Corpuscular Volume 93.1 fL (80-100); Mean Platelet Volume 8.9 fL (7.4-10.4); Monocytes # (auto) 0.29 K/uL (0.11-0.59); Monocytes % (auto) 1.7 %; Neutrophils # (auto) 15.79 K/uL (1.4-6.5); Platelet Count 430 K/uL (130-400); RDW Coefficient of Variation 12.3 % (11.5-14.5); RDW Standard Deviation 41.7 fL (36.4-46.3); Red Blood Count 4.47 M/uL (4.2-5.4); White Blood Count 16.81 K/uL (4.8-10.8)
[2019-04-01 12:26] LABS: Albumin Level 4.7 gm/dl (3.4-5.0); BUN Creatinine Ratio 17.1 (10-20); Bilirubin,Total 0.6 mg/dl (0.2-1); Calcium 10.7 mg/dl (8.5-10.1); Creatinine Clr Calc Pharmacy 59.3 ml/min; Est GFR (African American) 99.2; Est GFR (Non-African American) 85.6; Globulin 4.6 gm/dl (2.5-4.0); Total Protein 9.3 gm/dl (6.4-8.2)
[2019-04-01 12:29] LABS: Appearance Urine Clear (Clear); Bacteria Urine Automated Negative (Negative); Bilirubin Urine Negative (Negative); Blood Urine Negative (Negative); Cast Urine Automated 0 /lpf (0-5); Color Urine Yellow; Epithelial Cell Urine Auto 0-5 /lpf (0-5); Glucose Urine UA Negative (Negative); Ketones Urine Negative (Negative); Leukocyte Esterase Urine Negative (Negative); Nitrite Urine Negative (Negative); Protein Urine 1+ (Negative); RBC Urine Automated 0-4 /hpf (0-4); Specific Gravity Urine 1.016 (1.000-1.030); Urobilinogen Urine Negative (Negative); WBC Urine Automated 0 /hpf (0-5)
[2019-04-01] MEDS ORDERED: IOVERSOL 100ml IV PRN (13:17)
[2019-04-01 13:26] LABS: Potassium 3.5 mmol/L (3.5-5.1)
--- NOTE | 2019-04-01 13:34 | CT Scan Report ---
CT abd pelvis IV con only CLINICAL HISTORY: 53 years-old Female presenting with right flank w/ urinary symptoms. TECHNIQUE: Multidetector CT of the abdomen and pelvis was performed after the administration of intra venous contrast. IV contrast: 93 mL of Optiray 320. One or more dose lowering techniques were used co nsistent with the principles of ALARA (as low as reasonably achievable), including automatic exposure control, mA or kV adjustment to individual patient size, and/or use of iterative reconstruction. COMPARISON: 07/04/2018.. CT DOSE (mGy.cm): The estimated cumulative dose is 215.74 mGycm. FINDINGS: Guest History Clerk topogram: Unremarkable. Lung bases: Normal heart size. No pericardial or pleural effusion. Minimal dependent changes likely a telectasis. Mild interlobular septal thickening. Liver: Normal morphology. Subcentimeter well-defined hypodense lesion at the hepatic dome likely hepa tic cyst or hamartoma. Patent hepatic vasculature. Biliary: No intrahepatic or extrahepatic biliary ductal dilatation. Gallbladder polyp noted along the posterior wall measuring 3 mm unchanged from prior. The additional suspected polyps along the justin fundal region are less well demonstrated on the current exam. Pancreas: Normal. Spleen: Normal. Adrenal glands: Normal. Kidneys and ureters: Multiple bilateral renal cysts including a hyperdense cyst at the lower pole the left kidney unchanged from prior, likely hemorrhagic or proteinaceous cyst. No nephrolithiasis or hy dronephrosis. Ureters are nondistended. No convincing evidence of urothelial thickening on the curren t exam. Bladder: Incompletely evaluated secondary to underdistention. No significant wall thickening is appar ent. No bladder calculi. Pelvic organs: Uterus and ovaries normal. Bowel: Mild diverticulosis of the proximal sigmoid and distal descending colon. The appendix is not v isualized. No bowel obstruction. Peritoneal cavity: Trace free fluid in the pelvis. No free intraperitoneal gas. Lymph nodes: No enlarged lymph nodes in the abdomen or pelvis. Vasculature: Aorta and IVC patent and normal in caliber. Abdominal wall: Normal. Musculoskeletal: Normal. IMPRESSION: 1. No acute intra-abdominal pathology. 2. No nephrolithiasis or hydronephrosis. 3. No urothelial thickening or bladder wall thickening to suggest CT evidence of an urinary tract in fection. 4. Gallbladder polyposis, unchanged. New mild diverticulosis coli. No diverticulitis. 5. Trace free fluid in the pelvis may be physiologic. Electronically signed by: David Wu M.D. 04/01/2019 1:33 PM
--- NOTE | 2019-04-01 13:49 | XRay Report ---
XR chest 1V portable CLINICAL HISTORY: 53 years-old Female presenting with cough. TECHNIQUE: Portable upright AP view of the chest was obtained. COMPARISON: 07/04/2018. FINDINGS: Atherosclerosis of the aortic arch. Cardiac silhouette borderline enlarged. Lungs mildly hyperinflate d. Prominent nipple shadow at the left lung base. Right infrahilar shadow is new from prior. No other focal opacity. No pleural effusion or pneumothorax. Osteopenia may be present. Upper abdomen normal. IMPRESSION: 1. Right infrahilar shadow is new from prior. Right hilar lymphadenopathy or a paramediastinal paren chymal nodule is not excluded. Further evaluation with chest CT to be considered versus confirmatory PA and lateral views the chest. Electronically signed by: David Wu M.D. 04/01/2019 1:47 PM
--- NOTE | 2019-04-01 14:56 | Emergency Department Note ---
Entered by Inga Godoy acting as a scribe for History of Present Illness General Chief complaint: Urinary Symptoms Stated complaint: CONFUSION,GENERALIZED PAIN,FEVER,PAINFUL URINATION Source: patient Mode of arrival: ambulatory Limitations: no limitations History of Present Illness Onset (ago): week(s) 2 Location: pelvis Radiation: non-radiation Pain Consistency: + constant Maximum Pain Intensity: 6 Current Pain Intensity: 6 Relieved By: + none Exacerbated By: + none Associated symptoms: + fever/chills (+chills, -fever), + rash, + shortness of breath and + other (-abdominal pain, +back pain, -diarrhea, -dysuria, - hematuria); no confusion, no chest pain, no cough and no nausea/vomiting Treatments prior to arrival: none The patient is a 53 year old female who presents to the ED with complaints of urinary symptoms. She states "I think I have a UTI" and complains of increased urinary urgency for the past 2 weeks. She rates her discomfort as a 6/10 in severity. She denies any dysuria or hematuria. She states her doctor called her Amoxicillin to her pharmacy, but she has not started it yet. She reports about a week and a half ago, she was on another antibiotic that gave her a rash. She denies any recent cough or rhinorrhea. She states she feels cold and is "shivering so hard I can't get a deep breath". She denies any chest pain, abdominal pain, nausea, vomiting or diarrhea. She does admit to some inte rmittent back pain. Her states she had a stroke about 6 weeks ago and followed with [facility] for rehab. The patient does complain of some mental fog but denies any acute confusion. Her last BM was yesterday and normal. Home Medications Home Medications Medication Instructions Recorded Confirmed Type cholecalciferol (vitamin D3) 5,000 unit PO QAM 07/04/18 04/01/19 History [Vitamin D3] multivitamin 1 tab PO DAILY 07/04/18 04/01/19 History aspirin 81 mg PO QAM 02/26/19 04/01/19 History amoxicillin 500 mg PO UD 04/01/19 04/01/19 History clopidogrel 75 mg PO QAM 04/01/19 04/01/19 History fluconazole 200 mg PO QAM 04/01/19 04/01/19 History levothyroxine 75 mcg PO QAM 04/01/19 04/01/19 History Allergies Allergy/AdvReac Type Severity Reaction Status Date / Time amoxicillin Allergy Mild GI SYMPTOMS Verified 04/01/19 12:25 clavulanic acid Allergy Mild GI SYMPTOMS Verified 04/01/19 12:25 homatropine Allergy Mild GI SYMPTOMS Verified 04/01/19 12:25 hydrocodone Allergy Mild GI SYMPTOMS Verified 04/01/19 12:25 Sulfa (Sulfonamide Allergy Unknown Verified 04/01/19 12:25 Antibiotics) ciprofloxacin [From Cipro] AdvReac rash Verified 04/01/19 12:25 metronidazole AdvReac itching, Verified 04/01/19 12:25 rash, swelling nebivolol [From Bystolic] AdvReac nausea Verified 04/01/19 12:25 Past Med/Surg History Medical History Asthma (Acute) 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) Diverticulitis (Resolved) Dyspareunia in female (Acute) Gallbladder polyp (Acute) Hypertension (Resolved) Hypomagnesemia (Acute) Hypothyroidism (Acute) Insomnia (Acute) Kidney stone MVP (mitral valve prolapse) (Acute) Neoplasm of uncertain behavior of skin (Acute) Osteoporosis (Acute) Postmenopausal atrophic vaginitis (Acute) Premature menopause (Acute) Renal cyst, acquired (Acute) Stroke Stroke syndrome (Acute) Vitamin D deficiency (Acute) Surgical History S/P appendectomy S/P sinus surgery S/P tonsillectomy and adenoidectomy Status post colposcopy Social History Preferred Language: Kyrgyz Communication Ability: Effective marital status: Current Living Situation: Spouse current occupational status: employed current occupation: [employer] Feels Safe at Home: Yes Smoking Status: Never smoker Second Hand Exposure: No ; Hx Alcohol Use: No Hx Substance Use: No Review of Systems See HPI for pertinent positives & negatives. and A total of 10 systems reviewed and were otherwise negative Physical Exam Vital Signs Vital Signs - 24 hr 04/01/19 11:09 04/01/19 12:00 04/01/19 12:14 Temperature 36.8 C Temperature Source Oral Pulse Rate 75 78 72 Pulse Rate from SpO2 Sensor 77 72 Respiratory Rate 18 24 22 Blood Pressure 190/93 H 150/97 H Blood Pressure Mean 125 111 Pulse Oximetry 93 94 95 Oxygen Delivery Method Room Air Sepsis Recent Fever Within 48 Hours Yes Sepsis New/Unexplained Change in Mental Status No Sepsis Action Taken by Nursing No Action Required 04/01/19 12:30 04/01/19 13:03 04/01/19 13:30 Temperature Temperature Source Pulse Rate 74 Pulse Rate from SpO2 Sensor 74 Respiratory Rate 23 Blood Pressure 146/94 H 148/90 H Blood Pressure Mean 112 103 Pulse Oximetry 93 Oxygen Delivery Method Sepsis Recent Fever Within 48 Hours Sepsis New/Unexplained Change in Mental Status Sepsis Action Taken by Nursing GENERAL: Patient is alert, ill-appearing, laying in bed and shaking, disheveled, non-toxic EYE EXAM: normal conjunctiva OROPHARYNX: no exudate, no erythema, lips, buccal mucosa, and tongue normal and mucous membranes are moist NECK: supple, no nuchal rigidity, no adenopathy, non-tender LUNGS: Clear to auscultation. Normal chest wall mechanics HEART: no murmurs, S1 normal and S2 normal ABDOMEN: abdomen soft, non-tender, normo-active bowel sounds, no masses, no rebound or guarding. BACK: Back is symmetrical on inspection and there is no deformity, no midline tenderness, no CVA tenderness. SKIN: no rashes and no bruising UPPER EXTREMITIES: upper extremities are grossly normal. LOWER EXTREMITIES: No pitting edema. NEURO EXAM: Normal sensorium, cranial nerves II-XII grossly intact, normal speech, no gross weakness of arms, no gross weakness of legs. Gross sensation intact. Course Course ED COURSE: Vital signs were reviewed and showed the patient is hypertensive The patients medical record was reviewed The above diagnostic studies were performed and reviewed. ED treatments and interventions as stated above. 1118: The patient was evaluated in room C3. A complete history and physical examination was performed. 1340: I discussed the patients case with Dr. Aviles, [facility] Hospitalist. The patient will be further evaluated. 1400: Upon reevaluation, the patient is resting comfortably. I discussed my findings with the patient and she understands and agrees with the treatment plan. Based on the patients age, coexisting illnesses, exam and lab findings the decision to treat as an outpatient was made. The patient remained stable while under my care. The patient will be evaluated for further management. Administered Medications Ioversol (Optiray 320 100ml) 92 ml IV ONCE PRN PRN Reason: Interaction Checking Stop: 04/05/19 13:16 Last Admin: 04/01/19 13:17 Dose: 92 ml Documented by: [id number] Discontinued Medications Ceftriaxone Sodium (Rocephin) 1,000 mg in 50 mls @ 100 mls/hr IV NOW STA Stop: 04/01/19 11:55 Last Admin: 04/01/19 12:06 Dose: 100 mls/hr Documented by: [id number] Sodium Chloride (Nss 1000ml) 2,000 mls @ 999 mls/hr IV .Q2H1M ONE Stop: 04/01/19 13:26 Last Admin: 04/01/19 12:05 Dose: 999 mls/hr Documented by: [id number] Medical Decision Making Differential Diagnosis Differential diagnoses includes but is not limited to gastritis, peptic ulcer disease, GERD, gallbladder disease, pancreatitis, small bowel obstruction, acute coronary syndrome, pericarditis, ischemic bowel, irritable bowel disease, irritable bowel syndrome, appendicitis, diverticulitis, malignancy, hernia, urinary tract infection, torsion, /ectopic , perforation, trauma, infectious. Medical Records Attestation: I reviewed the patient's medical records. Home Medications Current Medication List: was personally reviewed by me Laboratory Data Attestation: I reviewed the patient's lab results. Result diagrams: 04/01/19 11:50 04/01/19 12:56 Lab Results 04/01/19 04/01/19 04/01/19 Range/Units 11:50 11:50 11:54 WBC 16.81 H (4.8-10.8) K/uL RBC 4.47 (4.2-5.4) M/uL Hgb 14.6 (12.0-16.0) g/dL Hct 41.6 (37-47) % MCV 93.1 (80-100) fL MCH 32.7 (25-34) pg MCHC 35.1 (32-36) g/dL RDW Std Deviation 41.7 (36.4-46.3) fL RDW Coeff of Pedro 12.3 (11.5-14.5) % Plt Count 430 H (130-400) K/uL MPV 8.9 (7.4-10.4) fL Immature Gran % (Auto) 0.2 % Neut % (Auto) 94.0 % Lymph % (Auto) 3.9 % [place] % (Auto) 1.7 % Eos % (Auto) 0.2 % Baso % (Auto) 0.0 % Immature Gran # (Auto) 0.04 H (0.00-0.02) K/uL Neut # (Auto) 15.79 H (1.4-6.5) K/uL Lymph # (Auto) 0.66 L (1.2-3.4) K/uL [place] # (Auto) 0.29 (0.11-0.59) K/uL Eos # (Auto) 0.03 (0-0.5) K/uL Baso # (Auto) 0.00 (0-0.2) K/uL Sodium 137 (136-145) mmol/L Potassium (3.5-5.1) mmol/L Chloride 102 (98-107) mmol/L Carbon Dioxide 21 (21-32) mmol/L Anion Gap 14.0 H (3-11) BUN 13 (7-18) mg/dl Creatinine 0.78 (0.6-1.2) mg/dl Est Cr Clr Drug Dosing 59.3 ml/min Est GFR ( Amer) 99.2 Est GFR (Non-Af Amer) 85.6 BUN/Creatinine Ratio 17.1 (10-20) Glucose 74 (70-99) mg/dl POC Lactic Acid Jasmeet 9.29 H (0.90-1.70) mmol/L Lactate (0.4-2.0) mmol/L Calcium 10.7 H (8.5-10.1) mg/dl Total Bilirubin 0.6 (0.2-1) mg/dl AST (15-37) U/L ALT 24 (12-78) U/L Alkaline Phosphatase 67 (45-117) U/L Total Protein 9.3 H (6.4-8.2) gm/dl Albumin 4.7 (3.4-5.0) gm/dl Globulin 4.6 H (2.5-4.0) gm/dl Albumin/Globulin Ratio 1.0 (0.9-2) Lipase 116 (73-393) U/L Specimen Hemolysis Urine Color Urine Appearance (Clear) Urine pH (4.5-7.5) Ur Specific [place] (1.000-1.030) Urine Protein (Negative) Urine Glucose (UA) (Negative) Urine Ketones (Negative) Urine Blood (Negative) Urine Nitrite (Negative) Urine Bilirubin (Negative) Urine Urobilinogen (Negative) Ur Leukocyte Esterase (Negative) Urine WBC (Auto) (0-5) /hpf Urine RBC (Auto) (0-4) /hpf U Hyaline Cast (Auto) (0-5) /lpf U Epithel Cells (Auto) (0-5) /lpf Urine Bacteria (Auto) (Negative) 04/01/19 04/01/19 04/01/19 Range/Units 12:00 12:56 12:56 WBC (4.8-10.8) K/uL RBC (4.2-5.4) M/uL Hgb (12.0-16.0) g/dL Hct (37-47) % MCV (80-100) fL MCH (25-34) pg MCHC (32-36) g/dL RDW Std Deviation (36.4-46.3) fL RDW Coeff of Pedro (11.5-14.5) % Plt Count (130-400) K/uL MPV (7.4-10.4) fL Immature Gran % (Auto) % Neut % (Auto) % Lymph % (Auto) % [place] % (Auto) % Eos % (Auto) % Baso % (Auto) % Immature Gran # (Auto) (0.00-0.02) K/uL Neut # (Auto) (1.4-6.5) K/uL Lymph # (Auto) (1.2-3.4) K/uL [place] # (Auto) (0.11-0.59) K/uL Eos # (Auto) (0-0.5) K/uL Baso # (Auto) (0-0.2) K/uL Sodium (136-145) mmol/L Potassium 3.5 (3.5-5.1) mmol/L Chloride (98-107) mmol/L Carbon Dioxide (21-32) mmol/L Anion Gap (3-11) BUN (7-18) mg/dl Creatinine (0.6-1.2) mg/dl Est Cr Clr Drug Dosing ml/min Est GFR ( Amer) Est GFR (Non-Af Amer) BUN/Creatinine Ratio (10-20) Glucose (70-99) mg/dl POC Lactic Acid Jasmeet (0.90-1.70) mmol/L Lactate 4.4 H* (0.4-2.0) mmol/L Calcium (8.5-10.1) mg/dl Total Bilirubin (0.2-1) mg/dl AST 38 H (15-37) U/L ALT (12-78) U/L Alkaline Phosphatase (45-117) U/L Total Protein (6.4-8.2) gm/dl Albumin (3.4-5.0) gm/dl Globulin (2.5-4.0) gm/dl Albumin/Globulin Ratio (0.9-2) Lipase (73-393) U/L Specimen Hemolysis Urine Color Yellow Urine Appearance Clear (Clear) Urine pH 5.0 (4.5-7.5) Ur Specific [place] 1.016 (1.000-1.030) Urine Protein 1+ H (Negative) Urine Glucose (UA) Negative (Negative) Urine Ketones Negative (Negative) Urine Blood Negative (Negative) Urine Nitrite Negative (Negative) Urine Bilirubin Negative (Negative) Urine Urobilinogen Negative (Negative) Ur Leukocyte Esterase Negative (Negative) Urine WBC (Auto) 0 (0-5) /hpf Urine RBC (Auto) 0-4 (0-4) /hpf U Hyaline Cast (Auto) 0 (0-5) /lpf U Epithel Cells (Auto) 0-5 (0-5) /lpf Urine Bacteria (Auto) Negative (Negative) Imaging Data Radiologist's Impression: Radiology results as stated below per my review and the radiologist's interpretation: CT abd pelvis IV con only CLINICAL HISTORY: 53 years-old Female presenting with right flank w/ urinary symptoms. TECHNIQUE: Multidetector CT of the abdomen and pelvis was performed after the administration of intravenous contrast. IV contrast: 93 mL of Optiray 320. One or more dose lowering techniques were used consistent with the principles of ALARA (as low as reasonably achievable), including automatic exposure control, mA or kV adjustment to individual patient size, and/or use of iterative reconstruction. COMPARISON: 07/04/2018.. CT DOSE (mGy.cm): The estimated cumulative dose is 215.74 mGycm. FINDINGS: [employer] topogram: Unremarkable. Lung bases: Normal heart size. No pericardial or pleural effusion. Minimal dependent changes likely atelectasis. Mild interlobular septal thickening. Liver: Normal morphology. Subcentimeter well-defined hypodense lesion at the hepatic dome likely hepatic cyst or hamartoma. Patent hepatic vasculature. Biliary: No intrahepatic or extrahepatic biliary ductal dilatation. Gallbladder polyp noted along the posterior wall measuring 3 mm unchanged from prior. The additional suspected polyps along the anterofundal region are less well demonstrated on the current exam. Pancreas: Normal. Spleen: Normal. Adrenal glands: Normal. Kidneys and ureters: Multiple bilateral renal cysts including a hyperdense cyst at the lower pole the left kidney unchanged from prior, likely hemorrhagic or proteinaceous cyst. No nephrolithiasis or hydronephrosis. Ureters are nondist ended. No convincing evidence of urothelial thickening on the current exam. Bladder: Incompletely evaluated secondary to underdistention. No significant wall thickening is apparent. No bladder calculi. Pelvic organs: Uterus and ovaries normal. Bowel: Mild diverticulosis of the proximal sigmoid and distal descending colon. The appendix is not visualized. No bowel obstruction. Peritoneal cavity: Trace free fluid in the pelvis. No free intraperitoneal gas. Lymph nodes: No enlarged lymph nodes in the abdomen or pelvis. Vasculature: Aorta and IVC patent and normal in caliber. Abdominal wall: Normal. Musculoskeletal: Normal. IMPRESSION: 1. No acute intra-abdominal pathology. 2. No nephrolithiasis or hydronephrosis. 3. No urothelial thickening or bladder wall thickening to suggest CT evidence of an urinary tract infection. 4. Gallbladder polyposis, unchanged. New mild diverticulosis coli. No diverticulitis. 5. Trace free fluid in the pelvis may be physiologic. Electronically signed by: David Wu M.D. 04/01/2019 1:33 PM XR chest 1V portable CLINICAL HISTORY: 53 years-old Female presenting with cough. TECHNIQUE: Portable upright AP view of the chest was obtained. COMPARISON: 07/04/2018. FINDINGS: Atherosclerosis of the aortic arch. Cardiac silhouette borderline enlarged. Lungs mildly hyperinflated. Prominent nipple shadow at the left lung base. Right infrahilar shadow is new from prior. No other focal opacity. No pleural effusion or pneumothorax. Osteopenia may be present. Upper abdomen normal. IMPRESSION: 1. Right infrahilar shadow is new from prior. Right hilar lymphadenopathy or a paramediastinal parenchymal nodule is not excluded. Further evaluation with chest CT to be considered versus confirmatory PA and lateral views the chest. Electronically signed by: David Wu M.D. 04/01/2019 1:47 PM Blood Pressure Blood Pressure Findings: Elevated blood pressure Blood Pressure Disposition: further management by hospitalist NICOLE Narrative Patient is a 53-year-old female who presents the ER for urinary urgency which is been present for the past 2 weeks associated with right-sided back pain and right mid abdomen pain. Patient was on antibiotics for about a half a week a week ago prescribed by her PCP but she did stop. She notes that she has a history of a stroke about a month ago. She admits to shaking chills at home. IV was established blood work was obtained and shows a leukocytosis of 17,000. Platelets are slightly elevated at 430. BMP was unremarkable. POC lactate was 9.29. Patient was given IV fluids and repeat lactate was 4.4. No significant transaminitis. Lipase was unremarkable. UA was completely clean. CT abdomen pelvis was benign. Chest x-ray was performed afterwards per my review I saw no focal infiltrate but radiology did notice a right hilar shadow. Will defer to the hospitalist for further work-up from this standpoint. I did give the patient a dose of IV Rocephin. She is updated bedside. 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 This in combination with a leukocytosis and shaking chills I felt warranted further investigation at this time. Patient family were updated bedside. Discussed with the hospitalist. Impression & Plan Leukocytosis, Symptoms of urinary tract infection, Elevated lactic acid level Discharge Plan Visit Data Chief Complaint: Urinary Symptoms Stated Complaint: CONFUSION,GENERALIZED PAIN,FEVER,PAINFUL URINATION ED Provider: [facility] Discharge Problem: Leukocytosis, Symptoms of urinary tract infection, Elevated lactic acid level Patient Disposition: Being Evaluated by Hospitalist Forms Stand Alone Forms: [facility] Prescriptions Prescriptions: No Action multivitamin Tablet 1 tab PO DAILY RF: 0 cholecalciferol (vitamin D3) [Vitamin D3] 5,000 unit Tablet 5,000 unit PO QAM RF: 0 aspirin 81 mg Tablet,Delayed Release (Dr/Ec) 81 mg PO QAM RF: 0 amoxicillin 500 mg capsule 500 mg PO UD RF: 0 fluconazole 200 mg tablet 200 mg PO QAM RF: 0 clopidogrel 75 mg tablet 75 mg PO QAM RF: 0 levothyroxine 50 mcg tablet 75 mcg PO QAM RF: 0 Referrals Referrals: Henry Engle MD [Primary Care Provider] - Discharge Problem: Leukocytosis Qualifiers: Leukocytosis type: unspecified Qualified Code(s): D72.829 - Elevated white blood cell count, unspecified The scribe's documentation has been prepared under my direction and personally reviewed by me in its entirety. I confirm that the note above accurately reflects all work, treatment, procedures, and medical decision making performed by me.
[2019-04-01] MEDS ORDERED: ACETAMINOPHEN 325 MG TAB PO STA (15:06)
[2019-04-01 15:41] LABS: Influenza A virus by PCR Neg for Influ A (Neg); Influenza B virus by PCR Neg for Influ B (Neg)
--- NOTE | 2019-04-01 16:26 | CT Scan Report ---
CT chest wo con CT DOSE: 172.42 mGy.cm HISTORY: Pneumonia possible PNA TECHNIQUE: Multiaxial CT images of the chest were performed without contrast. A dose lowering techni que was utilized adhering to the principles of ALARA. COMPARISON: 04/01/2019 FINDINGS: Small parenchymal infiltrate and/or atelectasis right base. Platelike atelectasis left base . Slight thickening left major fissure. Lung parenchyma shows no significant nodularity. Hilar and mediastinal regions are limited in terms of evaluation due to the absence of contrast. No m ajor adenopathy is identified. No evidence for dominant nodularity. Small nodules in the hilar or perihilar/mediastinal region may be missed in the absence of contrast e nhancement. IMPRESSION: Limited exam suggesting a small parenchymal infiltrate right base. No evidence for significant parenc hymal nodularity within limitations of a nonenhanced scan. The above report was generated using voice recognition software. It may contain grammatical, syntax or spelling errors. Electronically signed by: Oscar Whitaker M.D. 04/01/2019 4:25 PM
--- NOTE | 2019-04-01 16:52 | History & Physical Report ---
Date of Service April 01, 2019 Assessment & Plan (1) Pneumonia: As already discussed Present on Admission?: Yes (2) Sepsis associated hypotension: Admits to PCU on telemetry Vital signs every 4 hours CBC CMP daily TSH pending and BNP Gentle IV fluid hydration with normal saline and potassium at 100 cc/h Ceftriaxone and doxycycline for presumptive pneumonia. Sputum and blood culture pending Duo nebs every 4 hours DVT prophylaxis heparin 5000 units to every 12 Full code Present on Admission?: Yes (3) Leukocytosis: As the above Present on Admission?: Yes (4) Elevated lactic acid level: Most likely due to sepsis and metabolic acidosis. Patient said that her lactate is always elevated but it is not this high. Repeated lactate trended down from 9->4.4->3.4. Continue monitoring and treating sepsis Present on Admission?: Yes (5) Hypothyroidism: Continue levothyroxine 75 MCG's p.o. every morning. TSH pending. Present on Admission?: Yes (6) Hypomagnesemia: Pending magnesium. Replenish to keep magnesium above 2. Present on Admission?: Yes (7) Disorders of mitochondrial metabolism: Try to get in contact with Dr.John Gamaliel Eli. His office informed me of the name of the disease that patient has called LORNE CONNORS. Patient is apparently on LEVSIN sublingual as needed for diarrhea. Dr. Eli was not available today to speak to me but his staff did speak to me. His phone number [phone] if any question. 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 Patient states that her daughter had bronchitis recently. Patient said nothing helps her symptoms and this has been ongoing for 3 days. Patient appears very sick. She was exhibiting signs of sepsis. Patient says she has her mitochondrial disorder since early age and she was looking for cure for many years and she found a doctor in [place] Dr. Galdino Eli who is treating her for a rare disorder. Dr. Eli number is [phone]. Lactate in the ER is [address] scan abdomen and pelvis shows no acute intra-abdominal pathology, no nephrolithiasis or hydronephrosis, no urothelial thickening gallbladder wall thickening to suggest CT evidence of urinary tract infection. Patient has gallbladder polyposis. New mild event reticulosis without diverticulitis. Chest CT shows small parenchymal infiltrate in the right base. No evidence of significant parenchymal nodularity. It was not clear If small parenchymal infiltrate is atelectasis or possible pneumonia. Labs are reviewed and showed WBCs of 16.81. Hemoglobin 14.6. Hematocrit 49.6 platelets 430, PT 10.3, INR 1, APTT 25.4. Chemistry shows sodium of 137, potassium 3.5, creatinine 0.78 GFR 85.6 lactate initially 9.29 and 4.4 then 3.4. Patient states that her lactate is always elevated. Decision was made to admit patient for possible pneumonia and leukocytosis and sepsis. Allergies Allergy/AdvReac Type Severity Reaction Status Date / Time Sulfa (Sulfonamide Allergy Intermediate Rash Verified 04/01/19 19:15 Antibiotics) amoxicillin Allergy Mild GI SYMPTOMS Verified 04/01/19 12:25 clavulanic acid Allergy Mild GI SYMPTOMS Verified 04/01/19 12:25 homatropine Allergy Mild GI SYMPTOMS Verified 04/01/19 12:25 hydrocodone Allergy Mild GI SYMPTOMS Verified 04/01/19 12:25 ciprofloxacin [From Cipro] AdvReac Intermediate rash Verified 04/01/19 19:15 metronidazole AdvReac Intermediate itching, Verified 04/01/19 19:15 rash, swelling nebivolol [From Bystolic] AdvReac Mild nausea Verified 04/01/19 19:15 Home Medications Home Medications Medication Instructions Recorded Confirmed Type cholecalciferol (vitamin D3) 5,000 unit PO QAM 07/04/18 04/01/19 History [Vitamin D3] multivitamin 1 tab PO DAILY 07/04/18 04/01/19 History aspirin 81 mg PO QAM 02/26/19 04/01/19 History amoxicillin 500 mg PO UD 04/01/19 04/01/19 History clopidogrel 75 mg PO QAM 04/01/19 04/01/19 History fluconazole 200 mg PO QAM 04/01/19 04/01/19 History levothyroxine 75 mcg PO QAM 04/01/19 04/01/19 History Past Med/Surg History Medical History Asthma (Acute) 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) Diverticulitis (Resolved) Dyspareunia in female (Acute) Gallbladder polyp (Acute) Hypertension (Resolved) Hypomagnesemia (Acute) Hypothyroidism (Acute) Insomnia (Acute) Kidney stone MVP (mitral valve prolapse) (Acute) Neoplasm of uncertain behavior of skin (Acute) Osteoporosis (Acute) Postmenopausal atrophic vaginitis (Acute) Premature menopause (Acute) Renal cyst, acquired (Acute) Stroke Stroke syndrome (Acute) Vitamin D deficiency (Acute) Surgical History S/P appendectomy S/P sinus surgery S/P tonsillectomy and adenoidectomy Status post colposcopy Social History Preferred Language: Nicaraguan Communication Ability: Effective Smudger Required: No Beliefs That Will Affect Care: None marital status: Current Living Situation: Spouse current occupational status: employed current occupation: [employer] Feels Safe at Home: Yes Safety Concerns: Feels Safe At This Time Smoking Status: Never smoker Second Hand Exposure: No ; Hx Alcohol Use: No Hx Substance Use: No Review of Systems Review of Systems: All systems reviewed & are unremarkable except as noted in HPI & below Physical Exam Constitutional: WD/WN, vitals as above well developed and + ill appearing Eyes: PERRL, conjunctivae normal, anicteric sclerae ENMT: external ear and nose normal, oropharynx normal Neck: trachea midline, no thyromegaly Respiratory: normal respiratory effort, lungs clear to auscultation Auscultation: + crackles and + wheezes Cardiovascular: RRR, no murmur, no edema Gastrointestinal (Abdomen): normal bowel sounds, soft, nontender, no hepatosplenomegaly Musculoskeletal: no cyanosis or clubbing, extremities motor strength 5/5 Skin: no rashes, warm and dry Neurologic: patellar DTR's 2+ bilat, sensation intact Psychiatric: A+Ox3, euthymic affect Lymphatic: no cervical or axillary lymphadenopathy Results & Data Vital Signs (Past 12 Hours) Vital Signs Temp Pulse Resp BP Pulse Ox 04/01/19 15:17 39.3 C H 04/01/19 13:30 148/90 H 04/01/19 13:03 146/94 H 04/01/19 12:30 74 23 93 04/01/19 12:14 72 22 95 04/01/19 12:00 78 24 150/97 H 94 04/01/19 11:09 36.8 C 75 18 190/93 H 93 Code Status & VTE Plan Code Status Full code VTE Prophylaxis Plan VTE Prophylaxis will be ordered: Yes PG Care Time/CCT Total # of Minutes Spent Total Time Spent with Patient: Total time spent is greater than 50% in coordination of care (as documented) at patient's floor/unit and/or counseling patient: (1) Leukocytosis Leukocytosis type: unspecified Qualified Code(s): D72.829 - Elevated white blood cell count, unspecified
[2019-04-01 17:19] LABS: Pregnancy Test, Urine Negative (Negative)
[2019-04-01] MEDS ORDERED: ENOXAPARIN INJ 40 MG/0.4 ML SYR SQ SCH (17:27)
[2019-04-01] MEDS ORDERED: MAGNESIUM HYDROXIDE SUSP 30 ML UDC PO PRN (17:27)
[2019-04-01] MEDS ORDERED: POLYETHYLENE (MIRALAX) 17 GM PACK PO PRN (17:27)
[2019-04-01] MEDS ORDERED: ALUMINUM/MAGNESIUM SUSP 30 ML UDC PO PRN (17:27)
[2019-04-01] MEDS ORDERED: OXYCODONE/ACETAMINOPHEN 5mg/325mg TAB PO PRN (17:27)
[2019-04-01] MEDS ORDERED: cefTRIAXone SODIUM 2,000 MG/70 ML BAG IV SCH ×2 (18:00→23:00)
[2019-04-01] MEDS ORDERED: NSS + 20MEQ KCL 20 MEQ/1,000 ML BAG IV SCH (18:00)
[2019-04-01] MEDS ORDERED: ONDANSETRON INJ 2 MG/ML 2 ML VIAL IV PRN (18:49)
[2019-04-01] MEDS ORDERED: ALBUTEROL HFA 8 GM INHALER INH PRN (18:55)
[2019-04-01] MEDS ORDERED: PROMETHAZINE HCL 25 MG TAB PO PRN (18:57)
[2019-04-01] MEDS: ACETAMINOPHEN 325 MG TAB PO PRN (19:41)
[2019-04-01] MEDS: LEVALBUTEROL 0.31MG/3 ML VIAL NEB PRN (20:17)
[2019-04-01] MEDS ORDERED: KETOROLAC TROMETHAMINE 15 MG/ML VIAL IV PRN (21:43)
[2019-04-01] MEDS: HEPARIN SOD 5,000 UNIT/0.5 ML VIAL SC SCH (22:06)
[2019-04-01] MEDS: DOXYCYCLINE HYCLATE 100 MG in DEXTROSE 5% 100 ML IV SCH (22:12)
[2019-04-01] MEDS ORDERED: DEXTROSE 5% IV SCH (23:00)
[2019-04-01] MEDS ORDERED: CEFTRIAXONE SODIUM IV SCH (23:00)
[2019-04-01] MEDS ORDERED: cefTRIAXone SODIUM 1,000 MG in DEXTROSE 5% 50 ML IV SCH (23:00)
[2019-04-01 23:04] LABS: Hematocrit (blood only) 33.2 % (37-47); Hemoglobin 11.6 g/dL (12.0-16.0); Mean Corpuscular Hemoglobin 32.1 pg (25-34); Mean Corpuscular Hgb Conc 34.9 g/dL (32-36); Mean Platelet Volume 8.4 fL (7.4-10.4); Platelet Count 349 K/uL (130-400); RDW Coefficient of Variation 12.2 % (11.5-14.5); RDW Standard Deviation 41.6 fL (36.4-46.3); Red Blood Count 3.61 M/uL (4.2-5.4)
[2019-04-01 23:29] LABS: Basophils # (auto) 0.02 K/uL (0-0.2); Basophils % (auto) 0.1 %; Eosinophils # (auto) 0.19 K/uL (0-0.5); Eosinophils % (auto) 0.8 %; Immature Granulocytes # (auto) 0.09 K/uL (0.00-0.02); Immature Granulocytes % (auto) 0.4 %; Lymphocytes # (auto) 0.31 K/uL (1.2-3.4); Lymphocytes % (auto) 1.3 %; Monocytes # (auto) 0.41 K/uL (0.11-0.59); Monocytes % (auto) 1.7 %; Neutrophils # (auto) 22.88 K/uL (1.4-6.5); Neutrophils % (auto) 95.7 %
[2019-04-01 23:53] LABS: Magnesium 1.2 mg/dl (1.8-2.4); Thyroid Stimulating Hormone 7.5 uIu/ml (0.300-4.500)
[2019-04-02] MEDS ORDERED: DiphenhydrAMINE HCL 50 MG/ML VIAL IV STA (00:29)
[2019-04-02] MEDS: ACETAMINOPHEN 325 MG TAB PO PRN (05:33)
[2019-04-02] MEDS ORDERED: LEVOTHYROXINE SODIUM 75 MCG TABLET PO SCH (06:30)
[2019-04-02 07:04] LABS: Basophils # (auto) 0.02 K/uL (0-0.2); Basophils % (auto) 0.1 %; Eosinophils # (auto) 0.64 K/uL (0-0.5); Eosinophils % (auto) 3.1 %; Hematocrit (blood only) 32.3 % (37-47); Hemoglobin 11.2 g/dL (12.0-16.0); Immature Granulocytes # (auto) 0.07 K/uL (0.00-0.02); Immature Granulocytes % (auto) 0.3 %; Lymphocytes # (auto) 0.52 K/uL (1.2-3.4); Lymphocytes % (auto) 2.5 %; Mean Corpuscular Hemoglobin 31.9 pg (25-34); Mean Corpuscular Hgb Conc 34.7 g/dL (32-36); Mean Platelet Volume 8.5 fL (7.4-10.4); Monocytes % (auto) 1.9 %; Neutrophils # (auto) 19.29 K/uL (1.4-6.5); Neutrophils % (auto) 92.1 %; Platelet Count 348 K/uL (130-400); RDW Coefficient of Variation 12.5 % (11.5-14.5); RDW Standard Deviation 42.3 fL (36.4-46.3); Red Blood Count 3.51 M/uL (4.2-5.4); White Blood Count 20.94 K/uL (4.8-10.8)
[2019-04-02 07:15] VITALS: BP 125/87; TEMP 98.2
--- NOTE | 2019-04-02 07:35 | Infectious Disease Consult ---
Date of Consultation April 02, 2019 Assessment & Plan (1) Pneumonia: continue IV abx while in hospital. upon d/c would suggest transition to po doxy 100mg bid with food to complete a 7 day course for suspected URI. No contraindication for d/c from ID standpoint. History of Present Illness Attending Physician: Gerald Starr DO pt admitted with sob, cough, f/c x 3 days. daughter recently with URI. ct chest ? RLL infiltrate. had fever 39.3 upon arrival, elevated wbc and elevated lactate which is improving. she states she had a neb treatment last night and had productive cough afterwards, now feeling much better. asking for additional nebulizer. no f/c currently. no cp, sob, cough, no n/v/d, eating well. no abd pain. no gu symptoms. asking to go home. placed on IV doxy and rocehin, tolerating well. cultures pending, flu swab negative. on my exam she is sitting up in bed, comfortable, not toxic appearing. Allergies Allergy/AdvReac Type Severity Reaction Status Date / Time Sulfa (Sulfonamide Allergy Intermediate Rash Verified 04/01/19 19:15 Antibiotics) amoxicillin Allergy Mild GI SYMPTOMS Verified 04/01/19 12:25 clavulanic acid Allergy Mild GI SYMPTOMS Verified 04/01/19 12:25 homatropine Allergy Mild GI SYMPTOMS Verified 04/01/19 12:25 hydrocodone Allergy Mild GI SYMPTOMS Verified 04/01/19 12:25 ciprofloxacin [From Cipro] AdvReac Intermediate rash Verified 04/01/19 19:15 metronidazole AdvReac Intermediate itching, Verified 04/01/19 19:15 rash, swelling nebivolol [From Bystolic] AdvReac Mild nausea Verified 04/01/19 19:15 Home Medications Home Medications Medication Instructions Recorded Confirmed Type cholecalciferol (vitamin D3) 5,000 unit PO QAM 07/04/18 04/01/19 History [Vitamin D3] multivitamin 1 tab PO DAILY 07/04/18 04/01/19 History aspirin 81 mg PO QAM 02/26/19 04/01/19 History amoxicillin 500 mg PO UD 04/01/19 04/01/19 History clopidogrel 75 mg PO QAM 04/01/19 04/01/19 History fluconazole 200 mg PO QAM 04/01/19 04/01/19 History levothyroxine 75 mcg PO QAM 04/01/19 04/01/19 History Patient History Medical History Asthma (Acute) 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) Diverticulitis (Resolved) Dyspareunia in female (Acute) Gallbladder polyp (Acute) Hypertension (Resolved) Hypomagnesemia (Acute) Hypothyroidism (Acute) Insomnia (Acute) Kidney stone MVP (mitral valve prolapse) (Acute) Neoplasm of uncertain behavior of skin (Acute) Osteoporosis (Acute) Postmenopausal atrophic vaginitis (Acute) Premature menopause (Acute) Renal cyst, acquired (Acute) Stroke Stroke syndrome (Acute) Vitamin D deficiency (Acute) Surgical History S/P appendectomy S/P sinus surgery S/P tonsillectomy and adenoidectomy Status post colposcopy Social History Preferred Language: Hebrew Communication Ability: Effective Mold Sander Required: No Beliefs That Will Affect Care: None marital status: Current Living Situation: Spouse current occupational status: employed current occupation: [employer] Feels Safe at Home: Yes Safety Concerns: Feels Safe At This Time Smoking Status: Never smoker Second Hand Exposure: No ; Hx Alcohol Use: No Hx Substance Use: No Review of Systems Review of Systems: All systems reviewed & are unremarkable except as noted in HPI & below Physical Exam Constitutional: WD/WN, vitals as above Eyes: PERRL, conjunctivae normal, anicteric sclerae ENMT: external ear and nose normal, oropharynx normal Neck: normal visual inspection Respiratory: normal respiratory effort, lungs clear to auscultation Cardiovascular: RRR, no murmur, no edema Gastrointestinal (Abdomen): normal bowel sounds, soft, nontender, no hepatosplenomegaly Musculoskeletal: no cyanosis or clubbing, extremities motor strength 5/5 Skin: no rashes, warm and dry Psychiatric: A+Ox3, euthymic affect Results & Data Vital Signs (Past 12 Hours) Vital Signs Temp Pulse Resp BP Pulse Ox 04/02/19 07:12 36.8 C 79 16 125/87 93 04/02/19 03:45 37.2 C 74 18 115/81 93 04/01/19 23:20 36.9 C 86 20 112/74 90 04/01/19 20:18 89 20 91 04/01/19 20:13 36.9 C 82 18 132/83 90 PG Care Time/CCT Total # of Minutes Spent Total Time Spent with Patient: Total time spent is greater than 50% in coordination of care (as documented) at patient's floor/unit and/or counseling patient:
[2019-04-02 07:45] LABS: Albumin Globulin Ratio 0.8 (0.9-2); Albumin Level 2.8 gm/dl (3.4-5.0); BUN Creatinine Ratio 23.7 (10-20); Bilirubin,Total 0.5 mg/dl (0.2-1); Calcium 8.5 mg/dl (8.5-10.1); Creatinine Clr Calc Pharmacy 114.1 ml/min; Est GFR (African American) 135.9; Est GFR (Non-African American) 117.3; Globulin 3.3 gm/dl (2.5-4.0); Potassium 3.2 mmol/L (3.5-5.1); Total Protein 6.1 gm/dl (6.4-8.2)
[2019-04-02] MEDS: HEPARIN SOD 5,000 UNIT/0.5 ML VIAL SC SCH (08:13)
[2019-04-02] MEDS: DOXYCYCLINE HYCLATE 100 MG in DEXTROSE 5% 100 ML IV SCH (08:55)
[2019-04-02] MEDS ORDERED: MAGNESIUM OXIDE 400 MG TAB PO SCH (09:00)
[2019-04-02] MEDS ORDERED: CHOLECALCIFEROL 1,000 UNITS TAB PO SCH (09:00)
[2019-04-02] MEDS ORDERED: ASPIRIN 81 MG ECTAB PO SCH (09:00)
[2019-04-02] MEDS ORDERED: FLUCONAZOLE 100 MG TAB PO SCH (09:00)
[2019-04-02] MEDS ORDERED: CLOPIDOGREL BISULFATE 75 MG TAB PO SCH (09:00)
[2019-04-02] MEDS ORDERED: MULTIVITAMIN TAB PO SCH (09:00)
[2019-04-02] MEDS ORDERED: cefTRIAXone SODIUM 2,000 MG/70 ML BAG IV SCH (09:00)
[2019-04-02] MEDS: LEVALBUTEROL 0.31MG/3 ML VIAL NEB PRN (09:02)
[2019-04-02 09:04] VITALS: O2SAT 96
[2019-04-02] MEDS ORDERED: DOXYCYCLINE HYCLATE 100 MG CAP PO STA (09:19)
[2019-04-02 09:54] VITALS: PULSE 73
--- NOTE | 2019-04-02 12:26 | Discharge Summary ---
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 Patient states that her daughter had bronchitis recently. Patient said nothing helps her symptoms and this has been ongoing for 3 days. Patient appears very sick. She was exhibiting signs of sepsis. Patient says she has her mitochondrial disorder since early age and she was looking for cure for many years and she found a doctor in [place] Dr. Galdino Eli who is treating her for a rare disorder. Dr. Eli number is [phone]. Lactate in the ER is [address] scan abdomen and pelvis shows no acute intra-abdominal pathology, no nephrolithiasis or hydronephrosis, no urothelial thickening gallbladder wall thickening to suggest CT evidence of urinary tract infection. Patient has gallbladder polyposis. New mild event reticulosis without diverticulitis. Chest CT shows small parenchymal infiltrate in the right base. No evidence of significant parenchymal nodularity. It was not clear If small parenchymal infiltrate is atelectasis or possible pneumonia. Labs are reviewed and showed WBCs of 16.81. Hemoglobin 14.6. Hematocrit 49.6 platelets 430, PT 10.3, INR 1, APTT 25.4. Chemistry shows sodium of 137, potassium 3.5, creatinine 0.78 GFR 85.6 lactate initially 9.29 and 4.4 then 3.4. Patient states that her lactate is always elevated. Decision was made to admit patient for possible pneumonia and leukocytosis and sepsis. Principal Diagnosis Pneumonia Discharge Exam Constitutional WD/WN, vitals as above + thin Eyes PERRL, conjunctivae normal, anicteric sclerae ENMT external ear and nose normal, oropharynx normal Neck trachea midline, no thyromegaly Respiratory normal respiratory effort, lungs clear to auscultation + cough (dry); no respiratory distress Cardiovascular RRR, no murmur, no edema Gastrointestinal (Abdomen) normal bowel sounds, soft, nontender, no hepatosplenomegaly Musculoskeletal no cyanosis or clubbing, extremities motor strength 5/5 Skin no rashes, warm and dry Neurologic patellar DTR's 2+ bilat, sensation intact and PERRL, EOMI, accommodation nl, no face palsy, no dysarthria Psychiatric A+Ox3, euthymic affect Lymphatic no cervical or axillary lymphadenopathy Discharge Data Allergies Allergy/AdvReac Type Severity Reaction Status Date / Time Sulfa (Sulfonamide Allergy Intermediate Rash Verified 04/01/19 19:15 Antibiotics) amoxicillin Allergy Mild GI SYMPTOMS Verified 04/01/19 12:25 clavulanic acid Allergy Mild GI SYMPTOMS Verified 04/01/19 12:25 homatropine Allergy Mild GI SYMPTOMS Verified 04/01/19 12:25 hydrocodone Allergy Mild GI SYMPTOMS Verified 04/01/19 12:25 ciprofloxacin [From Cipro] AdvReac Intermediate rash Verified 04/01/19 19:15 metronidazole AdvReac Intermediate itching, Verified 04/01/19 19:15 rash, swelling nebivolol [From Bystolic] AdvReac Mild nausea Verified 04/01/19 19:15 Consultations 04/01/19 13:52 ED Decision to Admit Stat 04/01/19 17:27 Consult Case Management - Discharge Planning Routine Consult Infectious Diseases Routine Ordered Studies 04/01/19 11:26 CT abd pelvis IV con only Stat 04/01/19 15:57 CT chest wo con Stat Hospital Course (1) Pneumonia: community acquired pneumonia responded incredibly well to Rocephin, Doxycycline IV really responded well to duoneb, asks about getting nebulizer at home afebrile, BP and HR stable, lungs clear on exam with no distress, just an occasional cough feeling "100% better" in her words, ate her entire breakfast d/c home on Cefdinir and Doxycycline to complete 7 days total prescribed Duoneb q8 for cough and dyspnea, gave script for home nebulizer will follow up with Dr. Engle in one week (2) Sepsis associated hypotension: resolved completely with IV antibiotics and IV fluids no growth on blood cultures WBC trending down, still elevated but patient feels great Lactic acid trended down quickly no further evidence of sepsis, safe to d/c home on Cefdinir and Doxycycline (3) Leukocytosis: down to 20k from 23k, patient feels much much better vitals stable could consider repeating outpatient next week but if she feels completely better may not be necessary (4) Elevated lactic acid level: per patient, LA always a little high due to mitochondrial disease trended down to 3.1 from 4.4, BP stable after IV fluids (5) Hypothyroidism: Continue levothyroxine 75 MCG's p.o. every morning (6) Hypomagnesemia: (7) Disorders of mitochondrial metabolism: follows with Dr.John Gamaliel Eli. His office informed me of the name of the disease that patient has called LORNE CONNORS. Patient is apparently on LEVSIN sublingual as needed for diarrhea. Total Time Total Time Spent Total Time Spent (In Minutes): 37 minutes Total Time Includes: Examination of the Patient, Discharge Planning and Medication Reconciliation Discharge Plan Discharge Items Patient Disposition: Home - Self-Care Reason For Visit: SEPSIS,POSSIBLE PNEUMONIA Discharge Diagnosis: Pneumonia Condition on Discharge: Good Goals: complete a course of Doxycycline and Cefdinir Activity: Resume your previous activity Non-emergency contact: Primary Care Provider Call non-emergency contact if: you have any medication questions, your symptoms worsen and you have a fever Follow-up/Referrals: Henry Engle MD [Primary Care Provider] - Diet: Regular Addtl Attending Provider Instructions: Medications: - DOXYCYCLINE: take 100mg twice a day for 10 more doses, next dose due this evening - CEFDINIR: take 300mg twice a day for 10 more doses, next dose due this evening - DUONEB: use every 8 hours as needed for shortness of breath, wheezing, use with nebulizer machine Pneumonia complete course of Doxycycline and Cefdinir get rest and stay well hydrated and well nourished please follow up with Dr. Engle early next week, call his office tomorrow to schedule appointment please take script for nebulizer, they may have one at [facility], if not, they are available at [facility] which would be open tomorrow use Albuterol inhaler every 6-8 hours until you can get the nebulizer lungs are completely clear on exam, no crackles or rhonchi or wheezing no fever WBC down to 20k from 23k Pending Studies at Discharge: No Stand-Alone Forms: My [employer], Smoking Cessation Medications and DC Order Prescriptions: New doxycycline hyclate 100 mg capsule 100 mg PO BID 5 Days Qty: 10 RF: 0 cefdinir 300 mg capsule 300 mg PO BID 5 Days Qty: 10 RF: 0 ipratropium-albuterol 0.5 mg-3 mg(2.5 mg base)/3 mL solution for nebulization 3 ml INH Q8H PRN (Reason: wheezing) Qty: 90 RF: 3 Continued multivitamin Tablet 1 tab PO DAILY RF: 0 cholecalciferol (vitamin D3) [Vitamin D3] 5,000 unit Tablet 5,000 unit PO QAM RF: 0 aspirin 81 mg Tablet,Delayed Release (Dr/Ec) 81 mg PO QAM RF: 0 amoxicillin 500 mg capsule 500 mg PO UD RF: 0 fluconazole 200 mg tablet 200 mg PO QAM RF: 0 clopidogrel 75 mg tablet 75 mg PO QAM RF: 0 levothyroxine 50 mcg tablet 75 mcg PO QAM RF: 0 Discharge Orders: Discharge Order (Routine); Ordered 04/02/19 Ordered By: Gerald Orona/Other Patient Handouts: Cefdinir Oral capsule, Doxycycline Hyclate Oral tablet [Periodontitis] Admission Data Admit Date/Time: 04/01/19 16:21 Attending Provider: Gerald Starr Admit Provider: Edwin Aviles Primary Care Provider: Henry Engle Other Providers: Edwin Aviles ; Harini Santana Other Interventions: Discharge Summary Assessment (RN) Last Done: 04/02/19 09:49 DC Date/Time DO NOT enter until pt leaves facility: 04/02/19 10:53
== END 2019-04-02 10:53 | disposition home or self-care (01) | DRG 194 ==
LOC: ED 11:06 → 2S 16:21 → SUATTDRO 16:21 → 2S 17:33